=== PATIENT | female | born 1950 | race Caucasian/White ===

== ENCOUNTER 2020-04-25 21:58 | Inpatient (IN) ==
[2020-04-25] MEDS ORDERED: SODIUM CHLORIDE 0.9% 500 ML IV SCH (22:15)
[2020-04-25] MEDS ORDERED: PANTOprazole 40 MG in SYRINGE 0 ML IV ONE (22:25)
--- NOTE | 2020-04-25 22:38 | Emergency Department Note ---
History of Present Illness General Chief complaint: Weakness Stated complaint: DIZZINESS, WEAKNESS, ABNORMAL LAB History of Present Illness This 70-year-old presents to the ER complaining of weakness and abdominal pain who is anemic coming from the detention Location: Generalized Quality: Weak Severity: Moderate Duration: Past few days Timing: Started a few days ago Context: [facility] sent her in for blood transfusion Modifying factors: better with rest; worse with activity Patient had a blood transfusion last year without difficulties. She is unsure why she is anemic. Patient denies chest pain, dyspnea, fevers, flulike illness, black or blood in her stool, cold symptoms. No known active cancer. Home Medications Home Medications Medication Instructions Recorded Confirmed Type acetaminophen [Tylenol] 650 mg PO Q6H PRN 04/25/20 04/25/20 History acetaminophen [Tylenol] 650 mg PO Q6H PRN 04/25/20 04/25/20 History alogliptin 25 mg PO DAILY 04/25/20 04/25/20 History aspirin 81 mg PO DAILY 04/25/20 04/25/20 History bisacodyl [Dulcolax (bisacodyl)] 10 mg NV DIRECTED PRN 04/25/20 04/25/20 History bupropion HCl 150 mg PO BID 04/25/20 04/25/20 History carvedilol [Coreg] 12.5 mg PO BID 04/25/20 04/25/20 History cholecalciferol (vitamin D3) 50 mcg PO TID 04/25/20 04/25/20 History cranberry 400 mg PO DAILY 04/25/20 04/25/20 History cyclobenzaprine 10 mg PO Q8H PRN 04/25/20 04/25/20 History docusate sodium [Colace] 100 mg PO BID 04/25/20 04/25/20 History donepezil 10 mg PO DAILY 04/25/20 04/25/20 History duloxetine 20 mg PO DAILY 04/25/20 04/25/20 History escitalopram oxalate 10 mg PO DAILY 04/25/20 04/25/20 History ferrous sulfate 324 mg PO BID 04/25/20 04/25/20 History gabapentin 600 mg PO TID 04/25/20 04/25/20 History guaifenesin [Mucinex] 600 mg PO BID 04/25/20 04/25/20 History insulin glargine [Lantus Solostar 20 unit SUBCUT QA 04/25/20 04/25/20 History U-100 Insulin] insulin glargine [Lantus Solostar 30 unit SUBCUT HS 04/25/20 04/25/20 History U-100 Insulin] lactulose 15 ml PO Q6H PRN 04/25/20 04/25/20 History levalbuterol HCl [Xopenex] 0.63 mg INHALATION Q6H PRN 04/25/20 04/25/20 History levothyroxine 75 mcg PO DAILY 04/25/20 04/25/20 History lisinopril 5 mg PO DAILY 04/25/20 04/25/20 History magnesium hydroxide [Milk of 30 ml PO DIRECTED PRN 04/25/20 04/25/20 History Magnesia] memantine 10 mg PO BID 04/25/20 04/25/20 History montelukast [Singulair] 10 mg PO HS 04/25/20 04/25/20 History nystatin 1 applic TOPICAL Q8H PRN 04/25/20 04/25/20 History oxycodone-acetaminophen [Percocet] 1 tab PO Q4H PRN 04/25/20 04/25/20 History oxycodone-acetaminophen [Percocet] 1 tab PO Q4H PRN 04/25/20 04/25/20 History pantoprazole 40 mg PO DAILY 04/25/20 04/25/20 History sodium phosphates [Fleet Enema] 118 ml NV DIRECTED PRN 04/25/20 04/25/20 History spironolactone 12.5 mg PO BID 04/25/20 04/25/20 History sucralfate 1 g PO HS 04/25/20 04/25/20 History Allergies Allergy/AdvReac Type Severity Reaction Status Date / Time hydromorphone Allergy Mild hives Unverified 07/25/12 11:16 indomethacin Allergy Mild NOSE BLEED Unverified 07/25/12 11:16 CONTRAST DYE Allergy Intermediate DIFFICULTY Uncoded 07/25/12 11:16 BREATHING Past Med/Surg History Medical History CHF (congestive heart failure) COPD (chronic obstructive pulmonary disease) Diabetes High blood pressure Surgical History History of cholecystectomy Social History Preferred Language: Irish Current Living Situation: Skilled Nursing Feels Safe at Home: Yes Smoking Status: Former smoker Review of Systems A total of 10 systems reviewed and were otherwise negative Physical Exam Vital Signs Vital Signs - 24 hr 04/25/20 22:04 04/25/20 22:08 04/25/20 22:32 Temperature Temperature Source Pulse Rate 66 67 73 Pulse Rate from SpO2 Sensor 66 67 Respiratory Rate 10 L 7 L 26 H Blood Pressure 107/49 L Blood Pressure [Left Arm] Blood Pressure Mean 63 Blood Pressure Mean [Left Arm] Pulse Oximetry 100 100 Oxygen Delivery Method Oxygen Flow Rate Sepsis Recent Fever Within 48 Hours Sepsis New/Unexplained Change in Mental Status Sepsis Action Taken by Nursing 04/25/20 22:36 04/25/20 23:00 04/25/20 23:30 Temperature 36.8 C Temperature Source Oral Pulse Rate 65 84 73 Pulse Rate from SpO2 Sensor Respiratory Rate 16 18 17 Blood Pressure 107/49 L Blood Pressure [Left Arm] 107/49 L Blood Pressure Mean 68 Blood Pressure Mean [Left Arm] 68 Pulse Oximetry 100 Oxygen Delivery Method Nasal Cannula Oxygen Flow Rate 2 Sepsis Recent Fever Within 48 Hours No Sepsis New/Unexplained Change in Mental Status No Sepsis Action Taken by Nursing No Action Required 04/26/20 00:00 Temperature Temperature Source Pulse Rate 68 Pulse Rate from SpO2 Sensor Respiratory Rate 16 Blood Pressure Blood Pressure [Left Arm] Blood Pressure Mean Blood Pressure Mean [Left Arm] Pulse Oximetry Oxygen Delivery Method Oxygen Flow Rate Sepsis Recent Fever Within 48 Hours Sepsis New/Unexplained Change in Mental Status Sepsis Action Taken by Nursing VITALS: Vitals are noted on the nurse's note and reviewed by myself. Vital sign s stable. GENERAL: Pleasant female fatigued appearing, in no acute distress, nondiaphoretic SKIN: The skin was without rashes, erythema, edema, or bruising. There is no tenting of the skin. Capillary reflex less than 2 seconds. HEAD: Normocephalic atraumatic. EARS: External auditory canals clear EYES: Pupils equal round and reactive to light and accommodation. Conjunctivae without injection, sclerae without icterus. Extraocular movements intact. NOSE: Patent, turbinates without inflammation or discharge. MOUTH: Mucous membranes moist. Pharynx without erythema or exudate. Uvula m idline. Airway patent. Tongue does not deviate. NECK: Supple without nuchal rigidity. No lymphadenopathy. No thyromegaly. Cervical spine is nontender. No JVD. HEART: Regular rate and rhythm LUNGS: Clear to auscultation bilaterally without wheezes, rales or rhonchi. No retractions or accessory muscle use. ABDOMEN: Positive bowel sounds x 4. Normal tympanic percussion. Soft, protuberant, obese, tender to palpation lower abdomen, without masses or organomegaly. No guarding or rebound tenderness. 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 NEURO: Patient was alert and oriented to person place and time. Normal sensation to light and sharp touch. No focal neurological deficits. Course Administered Medications Sodium Chloride (Nss) 250 mls @ 15 mls/hr IV .[id number] PRN PRN Reason: For Transfusion Stop: 04/26/20 09:35 Last Admin: 04/26/20 00:40 Dose: 15 mls/hr Documented by: [id number] Discontinued Medications Pantoprazole Sodium 40 mg/ (Syringe) 10 mls @ 5 mls/min IV NOW ONE Stop: 04/25/20 22:26 Last Admin: 04/26/20 00:39 Dose: 5 mls/min Documented by: [id number] Critical Care Time Critical Care Time: Yes Total Critical Care Time: 35 I have personally spent 35 minutes of critical care time in the direct management of this patient. This includes bedside care, interpretation of diagnostic studies, and testing, discussion with consultants, patient, and family members, and other required patient management activities. This 35 minutes is in excess of all separately billable procedures. Medical Decision Making Medical Records Attestation: I reviewed the patient's medical records. Home Medications Current Medication List: was personally reviewed by me Laboratory Data Attestation: I reviewed the patient's lab results. Result diagrams: 04/25/20 22:20 04/25/20 22:20 Lab Results 04/25/20 04/25/20 04/25/20 Range/Units 22:20 22:20 22:43 WBC 6.23 (4.8-10.8) K/uL RBC 3.47 L (4.2-5.4) M/uL Hgb 7.6 L (12.0-16.0) g/dL Hct 27.9 L (37-47) % MCV 80.4 (80-100) fL MCH 21.9 L (25-34) pg MCHC 27.2 L (32-36) g/dL RDW Std Deviation 47.5 H (36.4-46.3) fL RDW Coeff of Carlos 16.2 H (11.5-14.5) % Plt Count 99 L (130-400) K/uL Immature Gran % (Auto) 0.3 % Neut % (Auto) 72.0 % Lymph % (Auto) 18.5 % Karnes % (Auto) 7.1 % Eos % (Auto) 1.8 % Baso % (Auto) 0.3 % Neut # (Auto) 4.49 (1.4-6.5) K/uL Lymph # (Auto) 1.15 L (1.2-3.4) K/uL Karnes # (Auto) 0.44 (0.11-0.59) K/uL Eos # (Auto) 0.11 (0-0.5) K/uL Baso # (Auto) 0.02 (0-0.2) K/uL Immature Gran # (Auto) 0.02 (0.00-0.02) K/uL Platelet Estimate Decreased L (Normal) Hypochromasia Present Sodium 139 (136-145) mmol/L Potassium 4.0 (3.5-5.1) mmol/L Chloride 105 (98-107) mmol/L Carbon Dioxide 30 (21-32) mmol/L Anion Gap 4.0 (3-11) BUN 26 H (7-18) mg/dl Creatinine 1.64 H (0.6-1.2) mg/dl Est Cr Clr Drug Dosing Not Reportable Est GFR ( Amer) 36.9 Est GFR (Non-Af Amer) 31.8 BUN/Creatinine Ratio 15.5 (10-20) Glucose 90 (70-99) mg/dl Calcium 9.1 (8.5-10.1) mg/dl Magnesium 1.9 (1.8-2.4) mg/dl Total Bilirubin 0.2 (0.2-1) mg/dl AST 9 L (15-37) U/L ALT 14 (12-78) U/L Alkaline Phosphatase 83 (45-117) U/L Total Creatine Kinase 40 (26-192) U/L Troponin I < 0.015 (0-0.045) ng/ml Total Protein 7.1 (6.4-8.2) gm/dl Albumin 3.0 L (3.4-5.0) gm/dl Globulin 4.1 H (2.5-4.0) gm/dl Albumin/Globulin Ratio 0.7 L (0.9-2) TSH 47.700 H (0.300-4.500) uIu/ml Free T4 0.75 L (0.8-1.6) ng/dl Blood Type O Positive Antibody Screen NEGATIVE Crossmatch See Detail Imaging Data Attestation: I personally reviewed and interpreted this imaging study as follows: Blood Pressure Blood Pressure Findings: Normal blood pressure MDM Narrative Prior records/ancillary studies reviewed and summarized above. Nursing notes reviewed. Additional history obtained from EMS. The patient's history was concerning for fatigue, anemia, abdominal pain. Differential diagnosis: Etiologies such as metabolic, infection, hypo/hyperglycemia, electrolyte abnormalities, cardiac sources, intracerebral event, toxicologic, neurologic, as well as others were entertained. Physical examination: As above. ER treatment provided: IV Lock An order was placed for continuous cardiac monitoring. The monitor shows a rate of 60-100 with a normal sinus rhythm. protonix On reassessment the patient felt better. Diagnostics interpretation by me: ECG: Ordered for weakness EKG: Normal sinus, low voltage, no acute ST-T wave changes, left axis deviation. Rate of 67. Impression normal sinus rhythm with a left axis deviation interpreted by myself I think arrhythmia is unlikely. EKG shows normal sinus rhythm with no interval abnormalities such as QT prolongation or WPW. There are no findings to suggest Brugada syndrome. Cardiac monitoring in the emergency department reveals no tachycardic or bradycardic dysrhythmia. Hypertrophic cardiomyopathy was considered but there are no clear historical elements pointing toward this. EKG is not suggestive. The QRS voltage is not extremely large and there are no suggestive Q waves. The labs revealed severe anemia, elevated TSH, low T4, elevated creatinine Blood transfusion paperwork was filled out and signed, reviewed and consented with the patient. Imaging studies: CT ABDOMEN & PELVIS Without Contrast: Mild thickening in the sigmoid colon suggesting some form of colitis. No evidence of pneumatosis or extra luminal air. Nonobstructive bowel gas pattern. Nodular hepatic contour may suggest cirrhosis. Splenomegaly. No radiograph evidence of pancreatitis. Gallbladder not visualized. Hysterectomy. Edema and scarring in the abdominal wall. Left renal stone. Nodularity in the right middle lobe Cardiomegaly Degenerative changes in the spine with associated central canal and foraminal stenoses. Radiologist: Dora Hedrick M.D. Chest x-ray with no acute consolidation, pneumothorax or free air per my interpretation. Cardiomegaly present Consultation: A consultation was placed with the hospitalist. The case was discussed and diagnostics were reviewed. The patient was evaluated in the ER for further treatment. Exam and history seem consistent with symptomatic anemia who is guaiac positive. Patient was given Protonix. She was typed and screened and ordered for 2 units. Medicine was consulted. She will be admitted. Patient is a full code. By the evaluation outlined above emergent etiologies such as infection, electrolyte abnormalities, cardiac sources, intracerebral event, toxologic, neurologic, abnormalities blood glucose, metabolic, as well as others were deemed relatively unlikely. The pt informed about the findings as listed above. All questions were answered and pleased with the treatment. The chart was completed utilizing [employer] Speech voice recognition software. Grammatical errors, random word insertions, pronoun errors, and incomplete sentences are an occassional consequence of this system due to software limitations, ambient noise, and hardware issues. Any formal questions or concerns about the content, text, or information contained within the body of this dictation should be directly addressed to the physician service assistant for clarification. Impression & Plan Anemia, Hypothyroidism, Colitis Discharge Plan Visit Data Chief Complaint: Weakness Stated Complaint: DIZZINESS, WEAKNESS, ABNORMAL LAB ED Provider: Catalino Adams ED Midlevel Provider: Erica Moreno Discharge Problem: Anemia, Hypothyroidism, Colitis Patient Disposition: Being Evaluated by Hospitalist Condition: Fair Forms Stand Alone Forms: My [facility] Prescriptions Prescriptions: No Action carvedilol [Coreg] 12.5 mg Tablet 12.5 mg PO BID RF: 0 alogliptin 25 mg Tablet 25 mg PO DAILY RF: 0 aspirin 81 mg Tablet,Delayed Release (Dr/Ec) 81 mg PO DAILY RF: 0 sucralfate 1 gram Tablet 1 g PO HS RF: 0 cranberry 400 mg Capsule 400 mg PO DAILY RF: 0 donepezil 10 mg Tablet 10 mg PO DAILY RF: 0 duloxetine 20 mg Capsule,Delayed Release(Dr/Ec) 20 mg PO DAILY RF: 0 escitalopram oxalate 10 mg Tablet 10 mg PO DAILY RF: 0 Lantus Solostar U-100 Insulin 100 unit/mL (3 mL) Insulin Pen 20 unit SUBCUT QAM RF: 0 Lantus Solostar U-100 Insulin 100 unit/mL (3 mL) Insulin Pen 30 unit SUBCUT HS RF: 0 levothyroxine 75 mcg Tablet 75 mcg PO DAILY RF: 0 lisinopril 5 mg Tablet 5 mg PO DAILY RF: 0 montelukast [Singulair] 10 mg Tablet 10 mg PO HS RF: 0 pantoprazole 40 mg Tablet,Delayed Release (Dr/Ec) 40 mg PO DAILY RF: 0 bupropion HCl 150 mg Tablet Extended Release 24 Hr 150 mg PO BID RF: 0 ferrous sulfate 324 mg (65 mg iron) Tablet,Delayed Release (Dr/Ec) 324 mg PO BID RF: 0 memantine 10 mg Tablet 10 mg PO BID RF: 0 guaifenesin [Mucinex] 600 mg Tablet Extended Release 12hr 600 mg PO BID RF: 0 spironolactone 25 mg Tablet 12.5 mg PO BID RF: 0 gabapentin 600 mg Tablet 600 mg PO TID RF: 0 cholecalciferol (vitamin D3) 50 mcg (2,000 unit) Tablet 50 mcg PO TID RF: 0 acetaminophen [Tylenol] 325 mg Tablet 650 mg PO Q6H PRN (Reason: Mild Pain (Scale Score 1-4)) RF: 0 docusate sodium [Colace] 100 mg Capsule 100 mg PO BID RF: 0 cyclobenzaprine 10 mg Tablet 10 mg PO Q8H PRN (Reason: Spasms) RF: 0 bisacodyl [Dulcolax (bisacodyl)] 10 mg Suppository 10 mg NV DIRECTED PRN (Reason: Constipation) RF: 0 Fleet Enema 19-7 gram/118 mL Enema 118 ml NV DIRECTED PRN (Reason: Constipation) RF: 0 lactulose 10 gram/15 mL (15 mL) Solution 15 ml PO Q6H PRN (Reason: Constipation) RF: 0 magnesium hydroxide [Milk of Magnesia] 400 mg/5 mL Suspension 30 ml PO DIRECTED PRN (Reason: Constipation) RF: 0 nystatin 100,000 unit/gram Powder 1 applic TOPICAL Q8H PRN (Reason: excoriation) RF: 0 oxycodone-acetaminophen [Percocet] 5-325 mg Tablet 1 tab PO Q4H PRN (Reason: pain 4-6) RF: 0 oxycodone-acetaminophen [Percocet] 5-325 mg Tablet 1 tab PO Q4H PRN (Reason: pain 7-10) RF: 0 acetaminophen [Tylenol] 325 mg Tablet 650 mg PO Q6H PRN (Reason: Fever) RF: 0 levalbuterol HCl [Xopenex] 0.63 mg/3 mL Solution For Nebulization 0.63 mg INHALATION Q6H PRN (Reason: sob/wheezing) RF: 0 Referrals Referrals: Nathaly Salgado [Primary Care Provider] - Discharge Problem: Anemia Qualifiers: Anemia type: unspecified type Qualified Code(s): D64.9 - Anemia, unspecified
[2020-04-25 22:46] LABS: Alanine Aminotransferase 14 U/L (12-78); Aspartate Aminotransferase 9 U/L (15-37); BUN Creatinine Ratio 15.5 (10-20); Blood Urea Nitrogen 26 mg/dl (7-18); Calcium 9.1 mg/dl (8.5-10.1); Carbon Dioxide 30 mmol/L (21-32); Chloride 105 mmol/L (98-107); Est GFR (African American) 36.9; Est GFR (Non-African American) 31.8; Glucose 90 mg/dl (70-99); Magnesium 1.9 mg/dl (1.8-2.4); Sodium 139 mmol/L (136-145)
[2020-04-25 22:57] LABS: Albumin Globulin Ratio 0.7 (0.9-2); Alkaline Phosphatase 83 U/L (45-117); Bilirubin,Total 0.2 mg/dl (0.2-1); Creatine Kinase 40 U/L (26-192); Globulin 4.1 gm/dl (2.5-4.0); Total Protein 7.1 gm/dl (6.4-8.2); Troponin I < 0.015 ng/ml (0-0.045)
[2020-04-25 23:03] LABS: Hematocrit (blood only) 27.9 % (37-47); Hemoglobin 7.6 g/dL (12.0-16.0); Mean Corpuscular Hemoglobin 21.9 pg (25-34); Mean Corpuscular Hgb Conc 27.2 g/dL (32-36); Mean Corpuscular Volume 80.4 fL (80-100); Platelet Count 99 K/uL (130-400); RDW Coefficient of Variation 16.2 % (11.5-14.5); RDW Standard Deviation 47.5 fL (36.4-46.3); Red Blood Count 3.47 M/uL (4.2-5.4); White Blood Count 6.23 K/uL (4.8-10.8)
[2020-04-25 23:04] LABS: Basophils # (auto) 0.02 K/uL (0-0.2); Basophils % (auto) 0.3 %; Eosinophils # (auto) 0.11 K/uL (0-0.5); Eosinophils % (auto) 1.8 %; Hypochromasia Present; Immature Granulocytes # (auto) 0.02 K/uL (0.00-0.02); Immature Granulocytes % (auto) 0.3 %; Lymphocytes # (auto) 1.15 K/uL (1.2-3.4); Lymphocytes % (auto) 18.5 %; Monocytes # (auto) 0.44 K/uL (0.11-0.59); Monocytes % (auto) 7.1 %; Neutrophils # (auto) 4.49 K/uL (1.4-6.5); Platelet Estimate Decreased (Normal)
[2020-04-25 23:09] LABS: T4 Free Thyroxine 0.75 ng/dl (0.8-1.6)
[2020-04-25] MEDS ORDERED: SODIUM CHLORIDE 0.9% 250 ML IV PRN (23:34)
--- NOTE | 2020-04-26 01:07 | History & Physical Report ---
Date of Service April 26, 2020 Assessment & Plan (1) Anemia: Hemoglobin on 04/23 was 7.1. Hemoglobin on 04/24 was 6.8. Hemoglobin upon admission today is 7.6. She reportedly has had transfusions in the past. She was typed and screened and written for 1 unit PRBCs by the ED. We will contact the referring [facility] to see if there are additional records regarding history of anemia. A presumptive at least contributing source would be colitis of sigmoid colon. Famotidine 20 mg IV every 12 hours Zofran 4 mg IV every 6 hours PRN NSS at 80 mils per hour Consult gastroenterology. Present on Admission?: Yes (2) Colitis: Colitis of sigmoid colon noted on CT. Place on Cipro 400 mg IV every 12 hours and Flagyl 500 mg IV every 8 hours. NSS at 80 mils per hour N.p.o. except medications for now Present on Admission?: Yes (3) Cirrhosis of liver: Liver test normal, follow serially. We will try to confirm in the daytime, what type of work-up the patient has had to this point Present on Admission?: Yes (4) Chronic kidney disease (CKD): Creatinine 1.64 upon admission. Range 1.68-2.14. 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 twice daily, until anemia assessment is completed Present on Admission?: Yes (8) Hypothyroidism: Reportedly on levothyroxine 75 mcg daily. TSH is 47.7 It will need to be verified if patient is actually taking medications as directed, if so, then dosing will need to be increased Present on Admission?: Yes (9) Splenomegaly: Noted Present on Admission?: Yes History of Present Illness Chief Complaint: The patient is referred to the emergency department by [facility] reporting that she needs a blood transfusion. Primary Care Provider: Nathaly Salgado The patient is a 70-year-old female with a past medical history including anemia, hypothyroidism, diabetes mellitus, anxiety with depression, muscle spasm, SDAT, peripheral neuropathy, COPD, chronic pain syndrome and GERD. She was sent to the ED by [facility] reporting that she needed a transfusion. Patient herself is unable to give a significant history, appearing somewhat lethargic and able to give one-word answers. She reportedly has been anemic in the past, and did have a blood transfusion last year without difficulties. Patient reportedly earlier denied chest pain, shortness of breath, fevers, chills. She is unable to tell me if she has had blood in her stool or any change in stool pattern. Her HPI and review of systems as noted are very limited. Allergies Allergy/AdvReac Type Severity Reaction Status Date / Time hydromorphone Allergy Mild hives Unverified 07/25/12 11:16 indomethacin Allergy Mild NOSE BLEED Unverified 07/25/12 11:16 CONTRAST DYE Allergy Intermediate DIFFICULTY Uncoded 07/25/12 11:16 BREATHING Home Medications Home Medications Medication Instructions Recorded Confirmed Type acetaminophen [Tylenol] 650 mg PO Q6H PRN 04/25/20 04/25/20 History acetaminophen [Tylenol] 650 mg PO Q6H PRN 04/25/20 04/25/20 History alogliptin 25 mg PO DAILY 04/25/20 04/25/20 History aspirin 81 mg PO DAILY 04/25/20 04/25/20 History bisacodyl [Dulcolax (bisacodyl)] 10 mg SC DIRECTED PRN 04/25/20 04/25/20 History bupropion HCl 150 mg PO BID 04/25/20 04/25/20 History carvedilol [Coreg] 12.5 mg PO BID 04/25/20 04/25/20 History cholecalciferol (vitamin D3) 50 mcg PO TID 04/25/20 04/25/20 History cranberry 400 mg PO DAILY 04/25/20 04/25/20 History cyclobenzaprine 10 mg PO Q8H PRN 04/25/20 04/25/20 History docusate sodium [Colace] 100 mg PO BID 04/25/20 04/25/20 History donepezil 10 mg PO DAILY 04/25/20 04/25/20 History duloxetine 20 mg PO DAILY 04/25/20 04/25/20 History escitalopram oxalate 10 mg PO DAILY 04/25/20 04/25/20 History ferrous sulfate 324 mg PO BID 04/25/20 04/25/20 History gabapentin 600 mg PO TID 04/25/20 04/25/20 History guaifenesin [Mucinex] 600 mg PO BID 04/25/20 04/25/20 History insulin glargine [Lantus Solostar 20 unit SUBCUT QAM 04/25/20 04/25/20 History U-100 Insulin] insulin glargine [Lantus Solostar 30 unit SUBCUT HS 04/25/20 04/25/20 History U-100 Insulin] lactulose 15 ml PO Q6H PRN 04/25/20 04/25/20 History levalbuterol HCl [Xopenex] 0.63 mg INHALATION Q6H PRN 04/25/20 04/25/20 History levothyroxine 75 mcg PO DAILY 04/25/20 04/25/20 History lisinopril 5 mg PO DAILY 04/25/20 04/25/20 History magnesium hydroxide [Milk of 30 ml PO DIRECTED PRN 04/25/20 04/25/20 History Magnesia] memantine 10 mg PO BID 04/25/20 04/25/20 History montelukast [Singulair] 10 mg PO HS 04/25/20 04/25/20 History nystatin 1 applic TOPICAL Q8H PRN 04/25/20 04/25/20 History oxycodone-acetaminophen [Percocet] 1 tab PO Q4H PRN 04/25/20 04/25/20 History oxycodone-acetaminophen [Percocet] 1 tab PO Q4H PRN 04/25/20 04/25/20 History pantoprazole 40 mg PO DAILY 04/25/20 04/25/20 History sodium phosphates [Fleet Enema] 118 ml SC DIRECTED PRN 04/25/20 04/25/20 History spironolactone 12.5 mg PO BID 04/25/20 04/25/20 History sucralfate 1 g PO HS 04/25/20 04/25/20 History Past Med/Surg History Medical History CHF (congestive heart failure) COPD (chronic obstructive pulmonary disease) Diabetes High blood pressure Surgical History History of cholecystectomy Social History Preferred Language: Amharic Current Living Situation: [facility] Feels Safe at Home: Yes Smoking Status: Former smoker Review of Systems Review of Systems: Unobtainable due to cognitive status Physical Exam Physical Exam: The patient is arousable, unable to cooperate significantly with examination. Well developed and well nourished, normocephalic and atraumatic, lying in bed and in no acute distress. HEENT--PERRL, EOMI, mucous membranes and oropharynx dry. Neck--supple. No JVD. No bruits. Thyroid normal, trachea midline, no adenopathy. Heart--normal S1 and S2. No murmurs, rubs or gallops. Lungs--clear bilaterally, no respiratory distress, no accessory muscle use. Abdomen--normal bowel sounds and soft. Nontender. Nondistended. Morbidly obese Extremities--no cyanosis or clubbing. No edema. Dermatologic--normal skin turgor. Appears mildly pale Neurologic--cranial nerves II through XII grossly intact. Rheumatologic--normal range of motion, with limited exam Psychiatric--flat affect, lethargic Results & Data Results & Data ([facility]) Vital Signs (Past 12 Hours) Vital Signs Temp Pulse Resp BP BP Pulse Ox 04/26/20 01:06 98.2 F 67 18 107/49 L 99 04/26/20 00:00 68 16 04/25/20 23:30 73 17 04/25/20 23:00 84 18 04/25/20 22:36 98.2 F 65 16 107/49 L 107/49 L 100 04/25/20 22:32 73 26 H 04/25/20 22:08 67 7 L 100 04/25/20 22:04 66 10 L 107/49 L 100 Laboratory Results Laboratory Results WBC 6.23 K/uL (4.8-10.8) 04/25/20 22:20 RBC 3.47 M/uL (4.2-5.4) L 04/25/20 22:20 Hgb 7.6 g/dL (12.0-16.0) L 04/25/20:20 Hct 27.9 % (37-47) L 04/25/20:20 MCV 80.4 fL (80-100) 04/25/20:20 MCH 21.9 pg (25-34) L 04/25/20:20 MCHC 27.2 g/dL (32-36) L 04/25/20:20 RDW Std Deviation 47.5 fL (36.4-46.3) H 04/25/20: RDW Coeff of Carlos 16.2 % (11.5-14.5) H 04/25/20:20 Plt Count 99 K/uL (130-400) L 04/25/20: Immature Gran % (Auto) 0.3 % 04/25/20: Neut % (Auto) 72.0 % 04/25/20:20 Lymph % (Auto) 18.5 % 04/25/20 22:20 Callaway % (Auto) 7.1 % 04/25/20: Eos % (Auto) 1.8 % 04/25/20 22:20 Baso % (Auto) 0.3 % 04/25/20:20 Neut # (Auto) 4.49 K/uL (1.4-6.5) 04/25/20: Lymph # (Auto) 1.15 K/uL (1.2-3.4) L 04/25/20:20 Callaway # (Auto) 0.44 K/uL (0.11-0.59) 04/25/20:20 Eos # (Auto) 0.11 K/uL (0-0.5) 04/25/20 22:20 Baso # (Auto) 0.02 K/uL (0-0.2) 04/25/20:20 Immature Gran # (Auto) 0.02 K/uL (0.00-0.02) 04/25/20:20 Platelet Estimate Decreased (Normal) L 04/25/20 22:20 Hypochromasia Present 04/25/20 22:20 Sodium 139 mmol/L (136-145) 04/25/20 22:20 Potassium 4.0 mmol/L (3.5-5.1) 06/25/20 22:20 Chloride 105 mmol/L (98-107) 04/25/20 22:20 Carbon Dioxide 30 mmol/L (21-32) 04/25/20 22:20 Anion Gap 4.0 (3-11) 04/25/20 22:20 BUN 26 mg/dl (7-18) H 04/25/20 22:20 Creatinine 1.64 mg/dl (0.6-1.2) H 04/25/20 22:20 Est Cr Clr Drug Dosing Not Reportable 04/25/20 22:20 Est GFR ( Amer) 36.9 04/25/20 22:20 Est GFR (Non-Af Amer) 31.8 04/25/20 22:20 BUN/Creatinine Ratio 15.5 (10-20) 04/25/20: Glucose 90 mg/dl (70-99) 04/25/20 22: Calcium 9.1 mg/dl (8.5-10.1) 04/25/20: Magnesium 1.9 mg/dl (1.8-2.4) 04/25/20:20 Total Bilirubin 0.2 mg/dl (0.2-1) 04/25/20 22:20 AST 9 U/L (15-37) L 04/25/20:20 ALT 14 U/L (12-78) 04/25/20 22:20 Alkaline Phosphatase 83 U/L (45-117) 04/25/20:20 Total Creatine Kinase 40 U/L (26-192) 04/25/20:20 Troponin I < 0.015 ng/ml (0-0.045) 04/25/20: Total Protein 7.1 gm/dl (6.4-8.2) 04/25/20: Albumin 3.0 gm/dl (3.4-5.0) L 04/25/20: Globulin 4.1 gm/dl (2.5-4.0) H 04/25/20 22:20 Albumin/Globulin Ratio 0.7 (0.9-2) L 04/25/20 22:20 TSH 47.700 uIu/ml (0.300-4.500) H 04/25/20 22:20 Free T4 0.75 ng/dl (0.8-1.6) L 04/25/20 22:20 Blood Type O Positive 04/25/20 22:43 Antibody Screen NEGATIVE 04/25/20 22:43 Crossmatch See Detail 04/25/20 22:43 Diagnostic Findings [facility] Patient: ODESSA OQUENDO (Female) : 54 Status: ER Date: 04/25/20 22:32 Room #: History: LOWER ABDOMINAL PAINS, QUESTIONABLE GI BLEED BEST OBTAINABLE DUE TO PATIENT HABITUS Slices: [id number] Priors: Tech: Sadie Kebede @ [phone] Exams: CT ABDOMEN & PELVIS Without Contrast Accession Numbers: [id number] Preliminary Findings Only See Final Report For Complete Findings CT ABDOMEN & PELVIS Without Contrast: Mild thickening in the sigmoid colon suggesting some form of colitis. No evidence of pneumatosis or extra luminal air. Nonobstructive bowel gas pattern. Nodular hepatic contour may suggest cirrhosis. Splenomegaly. No radiograph evidence of pancreatitis. Gallbladder not visualized. Hysterectomy. Edema and scarring in the abdominal wall. Left renal stone. Nodularity in the right middle lobe Cardiomegaly Degenerative changes in the spine with associated central canal and foraminal stenoses. Radiologist: Dora Hedrick M.D. Study ready at 22:35 and initial results transmitted at 22:47 *This report constitutes a preliminary interpretation only. Non-acute findings felt to be unrelated to the clinical presentation may not be discussed in this report. The study will be interpreted and a final report will be generated by the local Radiologist the following shift. To reach the hospital radiology department call [phone]. If a discrepancy is found between the preliminary and final interpretations of this study, please notify us via our Client Portal at [email or web address] QA Exams.You can also fax this report with a description of the discrepancy, or include the final report, to our daytime fax number [phone].If faxing, please indicate the severity of discrepancy using one of the following categories: [ ] 1 - Agree/Informational [ ] 2 - Unlikely to Affect Management [ ] 3 - Possible Eventual Change of Management [ ] 4 - Probable Immediate Change of Management For all other patient related information, please fax us at [phone]. [id number] Code Status & VTE Plan Code Status Full code VTE Prophylaxis Plan VTE Prophylaxis will be ordered: Yes PG Care Time/CCT Total # of Minutes Spent Total Time Spent with Patient: Total time spent is greater than 50% in coordination of care (as documented) at patient's floor/unit and/or counseling patient: Coding Level of Care Code 18837 Initial Inpt Care Lvl 3 Diagnoses Anemia D64.9 Anemia type: unspecified type Colitis K52.9 Cirrhosis of liver K74.60 Chronic kidney disease (CKD) N18.9 SDAT (senile dementia of Alzheimer's type) G30.1; F02.80 Anxiety with depression F41.8 Peripheral neuropathy G62.9 Hypothyroidism E03.9 Splenomegaly R16.1 (1) Anemia Anemia type: unspecified type Qualified Code(s): D64.9 - Anemia, unspecified
[2020-04-26] MEDS ORDERED: GLUCOSE 10 TABS/TUBE PO PRN (02:52)
[2020-04-26] MEDS ORDERED: GLUCOSE 40% GEL 15 GM TUBE PO PRN (02:52)
[2020-04-26] MEDS ORDERED: GLUCAGON FOR INJ 1 MG VIAL SQ PRN (02:52)
[2020-04-26] MEDS ORDERED: DEXTROSE 50% 50 ML SYRINGE IV PRN (02:52)
[2020-04-26] MEDS ORDERED: CARBOHYDRATES FOR HYPOGLYCEMIA PO PRN (02:52)
[2020-04-26] MEDS ORDERED: ONDANSETRON INJ 2 MG/ML 2 ML VIAL IV PRN ×2 (02:52→04:08)
[2020-04-26] MEDS: CIPROFLOXACIN / D5W 400 MG/200 ML BAG IV SCH ×2 (04:46→16:36)
[2020-04-26] MEDS: SODIUM CHLORIDE 0.9% 1000ML 1,000 ML IV SCH ×2 (04:46→16:20)
[2020-04-26] MEDS: metroNIDAZOLE 500 MG/100 ML BAG IV SCH ×3 (05:57→19:07)
--- NOTE | 2020-04-26 07:04 | XRay Report ---
XR chest 1V portable CLINICAL HISTORY: weakness COMPARISON STUDY: 07/25/2012 FINDINGS: There is mild elevation the right hemidiaphragm. There are low lung volumes. The heart is b orderline enlarged. There is no failure. No focal pulmonary consolidation. There are no pleural effus ions. Slight interstitial prominence is felt to be secondary technical factors given the patient's la rge body habitus.[ IMPRESSION: No active disease in the chest. ACT 112: Negative or not required by law. Electronically signed by: Alfredito Gutierrez M.D. 04/26/2020 7:02 AM
[2020-04-26] MEDS: FAMOTIDINE 20 MG in SYRINGE 3 ML IV SCH ×2 (08:49→21:31)
--- NOTE | 2020-04-26 09:02 | CT Scan Report ---
CT SCAN OF THE ABDOMEN AND PELVIS WITHOUT IV CONTRAST CLINICAL HISTORY: Lower abdominal pain. GI bleeding. COMPARISON STUDY: No priors. TECHNIQUE: CT scan of the abdomen and pelvis is performed from the lung bases to the proximal femora. Images are reviewed in the axial, sagittal, and coronal planes. IV contrast was not administered for this examination. Note that the examination was performed in suboptimal fashion without IV contrast. A dose lowering technique was utilized adhering to the principles of ALARA. CT DOSE: 1942.20 mGy.cm FINDINGS: Lung bases: The heart is normal in size and without pericardial effusion. The mitral annulus is dense ly calcified. There are scattered coronary artery calcifications. There is lipomatous hypertrophy of the interatrial septum. A small hiatal hernia is noted. There is an 11 mm pulmonary nodule in the rig ht middle lobe seen on image #18. Chronic interstitial changes are seen at the lung bases. No airspac e consolidation or pleural effusion is identified. Liver: The unenhanced liver is cirrhotic in morphology and heterogeneous in attenuation. There is hyp ertrophy of the left lobe and caudate, as well as nodularity of the surface contour. There is no intr ahepatic biliary ductal dilatation. Gallbladder: Not identified and presumed surgically absent. Spleen: The spleen is enlarged, measuring 18.3 cm in length. Pancreas: The unenhanced pancreas is moderately atrophic and grossly unremarkable. Adrenal glands: Unremarkable. Kidneys: The unenhanced kidneys demonstrate cortical atrophy and are without hydronephrosis. There ar e at least 4 nonobstructing left renal calculi which measure up to 4 mm. There are at least 3 punctat e nonobstructing right renal calculi. There is no evidence of contour deforming renal mass lesion. Abdominal vasculature: The abdominal aorta is normal in course and caliber noting moderate to advance d atherosclerotic calcification. Bowel: There is wall thickening identified involving the rectosigmoid colon with surrounding infiltra tion. The appearance suggests a nonspecific proctocolitis. The remainder of the colon is normal in ap pearance. There is no bowel obstruction. The appendix is well-visualized and normal. Peritoneum: There is no intraperitoneal free air or abdominal ascites. There is laxity of the ventral abdominal wall with left-sided protrusion of abdominal contents. Lymphadenopathy: None. Pelvic viscera: The bladder is grossly unremarkable. The uterus is surgically absent. No adnexal lesi on is seen. Skeletal structures: The skeletal structures are osteopenic. Moderate lumbosacral spondylosis is obse rved. No lytic or blastic lesions are seen. IMPRESSION: 1. Findings are consistent with a nonspecific proctocolitis. Clinical correlation will be required. 2. There is an 11 mm pulmonary nodule in the right middle lobe. This is pathologically indeterminant, and follow-up with a dedicated chest CT in 1-2 months time is recommended for reassessment. 3. Cirrhotic liver morphology. 4. Splenomegaly. 5. Bilateral nephrolithiasis. 6. Additional findings as above. ACT 112: Negative or not required by law. Electronically signed by: Scooter Handy M.D. 04/26/2020 9:00 AM
[2020-04-26] MEDS: INSULIN ASPART 100 UNITS/ML 3 ML PEN SC SCH ×4 (09:13→21:34)
[2020-04-26] MEDS ORDERED: NURSING DECISION MEDICATION ONE (09:45)
[2020-04-26] MEDS ORDERED: MICONAZOLE NITRATE POWDER 43 GM EXT PRN (09:47)
[2020-04-26 10:38] LABS: Estimated Average Glucose 97 mg/dl
[2020-04-26 10:51] LABS: INR 1.1 (0.9-1.1); Prothrombin Time 11.5 Seconds (9.0-12.0)
[2020-04-26 10:52] LABS: BUN Creatinine Ratio 15.9 (10-20); Calcium 8.7 mg/dl (8.5-10.1); Creatinine Clr Calc Pharmacy 42.2 ml/min; Est GFR (African American) 40.4; Est GFR (Non-African American) 34.9; Potassium 3.8 mmol/L (3.5-5.1)
[2020-04-26 10:55] LABS: Albumin Globulin Ratio 0.7 (0.9-2); Bilirubin,Total 0.3 mg/dl (0.2-1); Globulin 4.2 gm/dl (2.5-4.0); Phosphorus 2.6 mg/dl (2.5-4.9); Total Protein 7.2 gm/dl (6.4-8.2)
[2020-04-26 11:18] LABS: Hematocrit (blood only) 30.7 % (37-47); Hemoglobin 8.7 g/dL (12.0-16.0)
[2020-04-26] MEDS: GABAPENTIN 600 MG TAB PO SCH ×2 (14:41→21:32)
--- NOTE | 2020-04-26 15:10 | History & Physical Bridge Note ---
Date of Service April 26, 2020 Patient admitted after midnight Hb up to 8.7 patient is hungry, will let her eat moving bowels, diarrhea, will check C diff and stool cultures called Damian, confirmed she does take her medications, with TSH 47, will increase Synthroid to 100mcg History & Physical Bridge Note I have examined the patient, reviewed the History & Physical and in the interval since the performance of the History & Physical I have noted the following changes of clinical significance: no changes noted
--- NOTE | 2020-04-26 15:31 | Electrocardiogram Report ---
Test Reason : Blood Pressure : / mmHG Vent. Rate : 067 BPM Atrial Rate : 067 BPM P-R Int : 200 ms QRS Dur : 084 ms QT Int : 444 ms P-R-T Axes : 058 -79 051 degrees QTc Int : 469 ms Normal sinus rhythm Left axis deviation Low voltage QRS Septal infarct (cited on or before 25-APR-2020) Possible Lateral infarct (cited on or before 25-APR-2020) Abnormal ECG When compared with ECG of 25-JUL-2012 11:17, Fusion complexes are no longer Present Confirmed by Catalino Mccloud ([id number]) on 04/26/2020 3:31:23 PM Referred By: Nathaly Hearthside Confirmed By:Catalino Mccloud
[2020-04-26 15:59] LABS: Hematocrit (blood only) 29.5 % (37-47); Hemoglobin 8.4 g/dL (12.0-16.0)
[2020-04-26 21:23] LABS: Hematocrit (blood only) 28.9 % (37-47); Hemoglobin 8.1 g/dL (12.0-16.0)
[2020-04-26] MEDS: BuPROPion XL 150 MG TABCR PO SCH (21:32)
[2020-04-26] MEDS: carvediloL 12.5 MG TAB PO SCH (21:32)
[2020-04-26] MEDS: MONTELUKAST SODIUM 10 MG TABLET PO SCH (21:32)
[2020-04-26] MEDS: MEMANTINE HCL 10 MG TAB PO SCH (21:35)
[2020-04-26] MEDS: INSULIN GLARGINE SOLOSTAR 100 UNITS/ML 3 ML PEN SQ SCH (21:35)
[2020-04-27] MEDS: SODIUM CHLORIDE 0.9% 1000ML 1,000 ML IV SCH ×2 (04:29→16:21)
[2020-04-27] MEDS: metroNIDAZOLE 500 MG/100 ML BAG IV SCH ×3 (04:31→20:39)
[2020-04-27] MEDS: CIPROFLOXACIN / D5W 400 MG/200 ML BAG IV SCH ×2 (05:34→16:21)
[2020-04-27] MEDS: LEVOTHYROXINE SODIUM 100 MCG TABLET PO SCH (05:38)
[2020-04-27 06:17] LABS: INR 1.1 (0.9-1.1); Partial Thromboplastin Ratio 1.1; Partial Thromboplastin Time 29.4 Seconds (21.0-31.0); Prothrombin Time 11.6 Seconds (9.0-12.0)
[2020-04-27 06:32] LABS: Basophils # (auto) 0.01 K/uL (0-0.2); Basophils % (auto) 0.2 %; Eosinophils % (auto) 1.7 %; Hematocrit (blood only) 28.4 % (37-47); Hemoglobin 7.9 g/dL (12.0-16.0); Hypochromasia Present; Immature Granulocytes # (auto) 0.01 K/uL (0.00-0.02); Immature Granulocytes % (auto) 0.2 %; Lymphocytes # (auto) 1.05 K/uL (1.2-3.4); Lymphocytes % (auto) 18.3 %; Mean Corpuscular Hgb Conc 27.8 g/dL (32-36); Mean Corpuscular Volume 79.1 fL (80-100); Neutrophils # (auto) 4.18 K/uL (1.4-6.5); Neutrophils % (auto) 72.6 %; Ovalocytes 1+; Platelet Count 86 K/uL (130-400); Platelet Estimate Decreased (Normal); RDW Standard Deviation 45.9 fL (36.4-46.3); Red Blood Count 3.59 M/uL (4.2-5.4); White Blood Count 5.75 K/uL (4.8-10.8)
[2020-04-27 06:47] LABS: Albumin Level 2.8 gm/dl (3.4-5.0); BUN Creatinine Ratio 13.7 (10-20); Calcium 8.6 mg/dl (8.5-10.1); Creatinine Clr Calc Pharmacy 44.3 ml/min; Est GFR (African American) 42.4; Est GFR (Non-African American) 36.6; Magnesium 1.8 mg/dl (1.8-2.4); Potassium 3.7 mmol/L (3.5-5.1)
[2020-04-27 06:49] LABS: Albumin Globulin Ratio 0.7 (0.9-2); Bilirubin,Total 0.2 mg/dl (0.2-1); Globulin 3.8 gm/dl (2.5-4.0); Phosphorus 2.1 mg/dl (2.5-4.9); Total Protein 6.6 gm/dl (6.4-8.2)
[2020-04-27] MEDS: INSULIN ASPART 100 UNITS/ML 3 ML PEN SC SCH ×4 (08:42→20:52)
[2020-04-27] MEDS: DONEPEZIL HCL 10 MG TAB PO SCH (08:43)
[2020-04-27] MEDS: carvediloL 12.5 MG TAB PO SCH ×2 (08:43→20:39)
[2020-04-27] MEDS: MEMANTINE HCL 10 MG TAB PO SCH ×2 (08:44→20:41)
[2020-04-27] MEDS: ASPIRIN 81 MG ECTAB PO SCH (08:44)
[2020-04-27] MEDS: DULOXETINE HCL 20 MG CAP PO SCH (08:44)
[2020-04-27] MEDS: INSULIN GLARGINE SOLOSTAR 100 UNITS/ML 3 ML PEN SQ SCH ×2 (08:44→20:40)
[2020-04-27] MEDS: ESCITALOPRAM OXALATE 10 MG TAB PO SCH (08:44)
[2020-04-27] MEDS: PANTOprazole 40 MG TAB PO SCH (08:45)
[2020-04-27] MEDS: GABAPENTIN 600 MG TAB PO SCH ×3 (08:45→20:41)
[2020-04-27] MEDS: BuPROPion XL 150 MG TABCR PO SCH ×2 (08:45→20:52)
[2020-04-27] MEDS: FAMOTIDINE 20 MG in SYRINGE 3 ML IV SCH ×2 (08:50→20:52)
--- NOTE | 2020-04-27 15:00 | Hospitalist Progress Note ---
Date of Service April 27, 2020 Assessment & Plan (1) Anemia: Hemoglobin on 04/23 was 7.1. Hemoglobin on 04/24 was 6.8. unclear source of anemia, no overt signs of bleeding (no melena or hematochezia since admission) Hb up to 7.9 today continue to monitor daily, transfuse if < 7 microcytic, check iron panel (2) Colitis: Colitis of sigmoid colon noted on CT. Place on Cipro 400 mg IV every 12 hours and Flagyl 500 mg IV every 8 hours. NSS at 80 mils per hour allow her to eat as she is hungry she says she is having diarrhea but RN reports no BM today, she denies abdominal pain WBC normal difficult historian due to dementia (3) Cirrhosis of liver: Liver test normal, follow serially. no signs of decompensation at this time (4) Chronic kidney disease (CKD): Creatinine 1.64 upon admission. down to 1.4 today, making adequate urine via purewick electrolytes stable (5) SDAT (senile dementia of Alzheimer's type): SDAT/anxiety with depression- resume bupropion, donepezil, Lexapro, gabapentin, and memantine (6) Anxiety with depression: See above (7) Peripheral neuropathy: gabapentin 600 mg p.o. twice daily (8) Hypothyroidism: Reportedly on levothyroxine 75 mcg daily. TSH is 47.7 called [facility], confirmed that she takes her medications will increase Synthroid to 100mcg daily, repeat TSH in 6 weeks (9) Splenomegaly: Noted Admission and Anticipated Discharge Date Admission Date: April 26, 2020 Subjective patient sleeping a lot, no diarrhea per RN but the patient says she has diarrhea? the RN says she has not cleaned up the patient at all today she has Purewick catheter, making adequate amounts of urine denies abdominal pain, lunch was delivered but she is not hungry reviewed labs, Hb is stable at 7.9, WBC 5k, plts 86 Cr 1.46 and K is 3.7, Phos 2.1 Review of Systems Review of Systems: All systems reviewed & are unremarkable except as noted in HPI & below Physical Exam Constitutional: WD/WN, vitals as above + overweight Eyes: PERRL, conjunctivae normal, anicteric sclerae ENMT: external ear and nose normal, oropharynx normal Neck: trachea midline, no thyromegaly Respiratory: normal respiratory effort, lungs clear to auscultation Cardiovascular: RRR, no murmur, no edema Gastrointestinal (Abdomen): normal bowel sounds, soft, nontender, no hepatosplenomegaly Musculoskeletal: no cyanosis or clubbing, extremities motor strength 5/5 Skin: no rashes, warm and dry Neurologic: patellar DTR's 2+ bilat, sensation intact and PERRL, EOMI, accommodation nl, no face palsy, no dysarthria Psychiatric: Orientation: alert and oriented to person; + not oriented to place and + not oriented to time Lymphatic: no cervical or axillary lymphadenopathy Results & Data Results & Data ([facility]) Vital Signs (Past 12 Hours) Vital Signs Temp Pulse Pulse Resp BP Pulse Ox 04/27/20 11:10 36.4 C L 50 L 18 103/54 L 93 04/27/20 08:50 70 04/27/20 07:20 36.7 C 75 18 159/71 H 94 04/27/20 03:37 36.8 C 72 16 104/62 97 Laboratory Results Laboratory Results - last 24 hr 04/26/20 04/26/20 04/26/20 15:04 16:47 17:25 WBC RBC Hgb 8.4 L Hct 29.5 L MCV MCH MCHC RDW Std Deviation RDW Coeff of Carlos Plt Count Immature Gran % (Auto) Neut % (Auto) Lymph % (Auto) Edgar % (Auto) Eos % (Auto) Baso % (Auto) Neut # (Auto) Lymph # (Auto) Edgar # (Auto) Eos # (Auto) Baso # (Auto) Immature Gran # (Auto) Platelet Estimate Hypochromasia Ovalocytes PT INR APTT PTT Ratio Sodium Potassium Chloride Carbon Dioxide Anion Gap BUN Creatinine Est Cr Clr Drug Dosing Est GFR ( Amer) Est GFR (Non-Af Amer) BUN/Creatinine Ratio Glucose POC Glucose 123 H Calcium Phosphorus Magnesium Total Bilirubin AST ALT Alkaline Phosphatase Total Protein Albumin Globulin Albumin/Globulin Ratio SARS-CoV-2 RNA (RT-PCR) Pending 04/26/20 04/26/20 04/27/20 20:43 21:02 05:41 WBC 5.75 RBC 3.59 L Hgb 8.1 L 7.9 L Hct 28.9 L 28.4 L MCV 79.1 L MCH 22.0 L MCHC 27.8 L RDW Std Deviation 45.9 RDW Coeff of Carlos 16.0 H Plt Count 86 L Immature Gran % (Auto) 0.2 Neut % (Auto) 72.6 Lymph % (Auto) 18.3 Edgar % (Auto) 7.0 Eos % (Auto) 1.7 Baso % (Auto) 0.2 Neut # (Auto) 4.18 Lymph # (Auto) 1.05 L Edgar # (Auto) 0.40 Eos # (Auto) 0.10 Baso # (Auto) 0.01 Immature Gran # (Auto) 0.01 Platelet Estimate Decreased L Hypochromasia Present Ovalocytes 1+ PT INR APTT PTT Ratio Sodium Potassium Chloride Carbon Dioxide Anion Gap BUN Creatinine Est Cr Clr Drug Dosing Est GFR ( Amer) Est GFR (Non-Af Amer) BUN/Creatinine Ratio Glucose POC Glucose 104 H Calcium Phosphorus Magnesium Total Bilirubin AST ALT Alkaline Phosphatase Total Protein Albumin Globulin Albumin/Globulin Ratio SARS-CoV-2 RNA (RT-PCR) 04/27/20 04/27/20 04/27/20 05:41 05:41 07:47 WBC RBC Hgb Hct MCV MCH MCHC RDW Std Deviation RDW Coeff of Carlos Plt Count Immature Gran % (Auto) Neut % (Auto) Lymph % (Auto) Edgar % (Auto) Eos % (Auto) Baso % (Auto) Neut # (Auto) Lymph # (Auto) Edgar # (Auto) Eos # (Auto) Baso # (Auto) Immature Gran # (Auto) Platelet Estimate Hypochromasia Ovalocytes PT 11.6 INR 1.1 APTT 29.4 PTT Ratio 1.1 Sodium 142 Potassium 3.7 Chloride 110 H Carbon Dioxide 29 Anion Gap 3.0 BUN 20 H Creatinine 1.46 H Est Cr Clr Drug Dosing 44.3 Est GFR ( Amer) 42.4 Est GFR (Non-Af Amer) 36.6 BUN/Creatinine Ratio 13.7 Glucose 103 H POC Glucose 119 H Calcium 8.6 Phosphorus 2.1 L Magnesium 1.8 Total Bilirubin 0.2 AST 8 L ALT 11 L Alkaline Phosphatase 84 Total Protein 6.6 Albumin 2.8 L Globulin 3.8 Albumin/Globulin Ratio 0.7 L SARS-CoV-2 RNA (RT-PCR) 04/27/20 11:53 WBC RBC Hgb Hct MCV MCH MCHC RDW Std Deviation RDW Coeff of Carlos Plt Count Immature Gran % (Auto) Neut % (Auto) Lymph % (Auto) Edgar % (Auto) Eos % (Auto) Baso % (Auto) Neut # (Auto) Lymph # (Auto) Edgar # (Auto) Eos # (Auto) Baso # (Auto) Immature Gran # (Auto) Platelet Estimate Hypochromasia Ovalocytes PT INR APTT PTT Ratio Sodium Potassium Chloride Carbon Dioxide Anion Gap BUN Creatinine Est Cr Clr Drug Dosing Est GFR ( Amer) Est GFR (Non-Af Amer) BUN/Creatinine Ratio Glucose POC Glucose 141 H Calcium Phosphorus Magnesium Total Bilirubin AST ALT Alkaline Phosphatase Total Protein Albumin Globulin Albumin/Globulin Ratio SARS-CoV-2 RNA (RT-PCR) Medications Administered Current Inpatient Medications Aspirin (Ecotrin Ectab) 81 mg PO DAILY [facility] Stop: 05/27/20 08:59 Last Admin: 04/27/20 08:44 Dose: 81 mg Documented by: Bupropion HCl (Wellbutrin-Xl) 150 mg PO BID [facility] Stop: 05/26/20 20:59 Last Admin: 04/27/20 08:45 Dose: 150 mg Documented by: Carvedilol (Coreg) 12.5 mg PO BID [facility] Stop: 05/26/20 20:59 Last Admin: 04/27/20 08:43 Dose: 12.5 mg Documented by: Dextrose (Dextrose 50%) 25 - 50 ml IV UD PRN; Protocol PRN Reason: Hypoglycemia Protocol Stop: 05/26/20 02:51 Donepezil HCl (Aricept) 10 mg PO DAILY [facility] Stop: 05/27/20 08:59 Last Admin: 04/27/20 08:43 Dose: 10 mg Documented by: Duloxetine HCl (Cymbalta) 20 mg PO DAILY [facility] Stop: 05/27/20 08:59 Last Admin: 04/27/20 08:44 Dose: 20 mg Documented by: Escitalopram Oxalate (Lexapro Tab) 10 mg PO DAILY [facility] Stop: 05/27/20 08:59 Last Admin: 04/27/20 08:44 Dose: 10 mg Documented by: Gabapentin (Neurontin) 600 mg PO TID [facility] Stop: 05/26/20 13:59 Last Admin: 04/27/20 14:12 Dose: 600 mg Documented by: Glucagon (Glucagen) 1 mg SQ UD PRN; Protocol PRN Reason: Hypoglycemia Protocol Stop: 05/26/20 02:51 Glucose (Dex4 Glucose) 4 - 8 tabs PO UD PRN; Protocol PRN Reason: Hypoglycemia Protocol Stop: 05/26/20 02:51 Glucose (Glucose 40%) 15 - 30 gm PO UD PRN; Protocol PRN Reason: Hypoglycemia Protocol Stop: 05/26/20 02:51 Ciprofloxacin (Cipro) 400 mg in 200 mls @ 200 mls/hr IV Q12H [facility] Stop: 05/06/20 03:59 Last Infusion: 04/27/20 08:46 Dose: Infused Documented by: Metronidazole (Flagyl) 500 mg in 100 mls @ 100 mls/hr IV Q8H [facility] Stop: 05/06/20 03:59 Last Infusion: 04/27/20 14:13 Dose: Infused Documented by: Sodium Chloride (Nss 1000ml) 1,000 mls @ 80 mls/hr IV .[id number] [facility] Stop: 05/26/20 02:51 Last Admin: 04/27/20 04:29 Dose: 80 mls/hr Documented by: Famotidine 20 mg/ Syringe 5 mls @ 2.5 mls/min IV Q12H [facility] Stop: 05/26/20 08:59 Last Admin: 04/27/20 08:50 Dose: 2.5 mls/min Documented by: Insulin Aspart (Novolog Flexpen) 0 units SC ACHS [facility] Stop: 05/26/20 07:29 Last Admin: 04/27/20 12:30 Dose: Not Given Documented by: Insulin Glargine (Lantus Solostar Pen) 30 units SQ HS [facility] Stop: 05/26/20 20:59 Last Admin: 04/26/20 21:35 Dose: 30 units Documented by: Insulin Glargine (Lantus Solostar Pen) 20 units SQ QAM [facility] Stop: 05/27/20 08:59 Last Admin: 04/27/20 08:44 Dose: 20 units Documented by: Levothyroxine Sodium (Synthroid) 100 mcg PO DAILYBB [facility] Stop: 05/27/20 06:29 Last Admin: 04/27/20 05:38 Dose: 100 mcg Documented by: Memantine (Namenda) 10 mg PO BID [facility] Stop: 05/26/20 20:59 Last Admin: 04/27/20 08:44 Dose: 10 mg Documented by: Miconazole Nitrate (Desenex) 1 appln EXT PRN PRN PRN Reason: AFFECTED SKIN FOLDS Stop: 05/26/20 09:46 Miscellaneous (Carbohydrates For Hypoglycemia) 15 - 30 gm PO UD PRN PRN Reason: Hypoglycemia Protocol Stop: 05/26/20 02:51 Montelukast Sodium (Singulair) 10 mg PO HS [facility] Stop: 05/26/20 20:59 Last Admin: 04/26/20 21:32 Dose: 10 mg Documented by: Ondansetron HCl (Zofran) 4 mg IV Q6H PRN PRN Reason: Nausea Stop: 05/26/20 02:51 Ondansetron HCl (Zofran) 4 mg IV Q6H PRN PRN Reason: NAUSEA/VOMITING Stop: 05/26/20 04:07 Pantoprazole Sodium (Protonix) 40 mg PO DAILY [facility] Stop: 05/27/20 08:59 Last Admin: 04/27/20 08:45 Dose: 40 mg Documented by: PG Care Time/CCT Total # of Minutes Spent Total Time Spent with Patient: Total time spent is greater than 50% in coordination of care (as documented) at patient's floor/unit and/or counseling patient: Coding Level of Care Code 73357 Subseq Hosp Care Lvl 3 Diagnoses Anemia D64.9 Anemia type: unspecified type Colitis K52.9 Cirrhosis of liver K74.60 Chronic kidney disease (CKD) N18.9 SDAT (senile dementia of Alzheimer's type) G30.1; F02.80 Anxiety with depression F41.8 Peripheral neuropathy G62.9 Hypothyroidism E03.9 Splenomegaly R16.1 (1) Anemia Anemia type: unspecified type Qualified Code(s): D64.9 - Anemia, unspecified
[2020-04-27] MEDS: MONTELUKAST SODIUM 10 MG TABLET PO SCH (20:52)
[2020-04-28] MEDS: metroNIDAZOLE 500 MG/100 ML BAG IV SCH ×2 (04:07→12:48)
[2020-04-28] MEDS: SODIUM CHLORIDE 0.9% 1000ML 1,000 ML IV SCH (04:07)
[2020-04-28] MEDS: CIPROFLOXACIN / D5W 400 MG/200 ML BAG IV SCH (05:08)
[2020-04-28 06:06] LABS: INR 1.2 (0.9-1.1); Partial Thromboplastin Ratio 1.1; Partial Thromboplastin Time 30.4 Seconds (21.0-31.0); Prothrombin Time 12.4 Seconds (9.0-12.0)
[2020-04-28] MEDS: LEVOTHYROXINE SODIUM 100 MCG TABLET PO SCH (06:12)
[2020-04-28 06:30] LABS: Hematocrit (blood only) 28.9 % (37-47); Hemoglobin 8.1 g/dL (12.0-16.0); Mean Corpuscular Hemoglobin 22.8 pg (25-34); Mean Corpuscular Volume 81.4 fL (80-100); Platelet Count 90 K/uL (130-400); RDW Standard Deviation 47.1 fL (36.4-46.3); Red Blood Count 3.55 M/uL (4.2-5.4); White Blood Count 6.15 K/uL (4.8-10.8)
[2020-04-28 06:31] LABS: Anisocytosis Present; Basophils # (auto) 0.01 K/uL (0-0.2); Basophils % (auto) 0.2 %; Eosinophils # (auto) 0.09 K/uL (0-0.5); Eosinophils % (auto) 1.5 %; Immature Granulocytes # (auto) 0.01 K/uL (0.00-0.02); Immature Granulocytes % (auto) 0.2 %; Lymphocytes # (auto) 0.95 K/uL (1.2-3.4); Lymphocytes % (auto) 15.4 %; Monocytes # (auto) 0.45 K/uL (0.11-0.59); Monocytes % (auto) 7.3 %; Neutrophils # (auto) 4.64 K/uL (1.4-6.5); Neutrophils % (auto) 75.4 %; Ovalocytes 1+; Platelet Estimate Decreased (Normal); Polychromasia 1+
[2020-04-28 06:33] LABS: Albumin Level 2.6 gm/dl (3.4-5.0); BUN Creatinine Ratio 11.6 (10-20); Calcium 8.4 mg/dl (8.5-10.1); Creatinine Clr Calc Pharmacy 52.8 ml/min; Est GFR (African American) 52.2; Magnesium 1.7 mg/dl (1.8-2.4); Potassium 3.4 mmol/L (3.5-5.1)
[2020-04-28 06:36] LABS: Albumin Globulin Ratio 0.7 (0.9-2); Bilirubin,Total 0.3 mg/dl (0.2-1); Ferritin 12.3 ng/ml (8-388); Globulin 3.8 gm/dl (2.5-4.0); Phosphorus 1.9 mg/dl (2.5-4.9); Total Protein 6.4 gm/dl (6.4-8.2)
[2020-04-28] MEDS ORDERED: POTASSIUM PHOS 3 MMOL/1 ML INFUSION IV STA (07:15)
[2020-04-28] MEDS ORDERED: MAGNESIUM SULFATE / D5W 1 GM/100 ML BAG IV ONE (08:00)
[2020-04-28] MEDS ORDERED: POTASSIUM PHOSPHATE 21 MMOL in SODIUM CHLORIDE 0.9% 500 ML IV ONE (08:00)
[2020-04-28] MEDS: INSULIN ASPART 100 UNITS/ML 3 ML PEN SC SCH ×4 (08:20→20:38)
[2020-04-28] MEDS: DULOXETINE HCL 20 MG CAP PO SCH (08:22)
[2020-04-28] MEDS: DONEPEZIL HCL 10 MG TAB PO SCH (08:22)
[2020-04-28] MEDS: carvediloL 12.5 MG TAB PO SCH ×2 (08:22→20:20)
[2020-04-28] MEDS: INSULIN GLARGINE SOLOSTAR 100 UNITS/ML 3 ML PEN SQ SCH ×2 (08:23→20:40)
[2020-04-28] MEDS: MEMANTINE HCL 10 MG TAB PO SCH ×2 (08:23→20:21)
[2020-04-28] MEDS: ESCITALOPRAM OXALATE 10 MG TAB PO SCH (08:23)
[2020-04-28] MEDS: ASPIRIN 81 MG ECTAB PO SCH (08:23)
[2020-04-28] MEDS: PANTOprazole 40 MG TAB PO SCH (08:24)
[2020-04-28] MEDS: BuPROPion XL 150 MG TABCR PO SCH ×2 (08:24→20:21)
[2020-04-28] MEDS: GABAPENTIN 600 MG TAB PO SCH ×3 (08:24→20:21)
[2020-04-28] MEDS: FAMOTIDINE 20 MG in SYRINGE 3 ML IV SCH ×2 (08:31→20:24)
--- NOTE | 2020-04-28 12:31 | Hospitalist Progress Note ---
Date of Service April 28, 2020 Assessment & Plan (1) Anemia: Hemoglobin on 04/23 was 7.1. Hemoglobin on 04/24 was 6.8. unclear source of anemia, no overt signs of bleeding (no melena or hematochezia since admission) Hb up to 8.1 today continue to monitor daily, transfuse if < 7 microcytic, ferritin quite low at 12 start on Venofer 200mg IV daily x 5 days (2) Colitis: Colitis of sigmoid colon noted on CT. Place on Cipro 400 mg IV every 12 hours and Flagyl 500 mg IV every 8 hours. NSS at 80 mils per hour -- stop fluids today eating well, no abdominal pain, no diarrhea today WBC normal difficult historian due to dementia will transition to PO antibiotics, complete 10 days total including what she got here (3) Cirrhosis of liver: Liver test normal, follow serially. no signs of decompensation at this time (4) Chronic kidney disease (CKD): Creatinine 1.64 upon admission. down to 1.2 today, making adequate urine via purewick Hypokalemia: K is 3.4, replace with K Phos 21mmol Hypomagnesemia: 1.7, give 1gm IV Hypophosphatemia: replace with K Phos 21mmol (5) SDAT (senile dementia of Alzheimer's type): SDAT/anxiety with depression- resume bupropion, donepezil, Lexapro, gabapentin, and memantine (6) Anxiety with depression: See above (7) Peripheral neuropathy: gabapentin 600 mg p.o. twice daily (8) Hypothyroidism: Reportedly on levothyroxine 75 mcg daily. TSH is 47.7 called [facility], confirmed that she takes her medications she says her dose has varied over the years, used to take up to 450mcg will up the dose further to 125mcg daily repeat TSH in 6 weeks (9) Splenomegaly: Noted Admission and Anticipated Discharge Date Admission Date: April 26, 2020 Subjective patient is awake, sitting up in bed, eating lunch she says she is not having any diarrhea, in fact she has not moved her bowels in two days this is consistent with what nurses have told me she is breathing well on 2L NC, she is on oxygen all the time at [facility] she says at baseline she is in bed and the staff use Katharine lift to get her back into wheelchair she denies abdominal pain we talked about her TSH being elevated, she says her Synthroid dose has varied over the years, at one point she was on as much as 450mcg a day, not able to confirm this labs reviewed, Ferritin low at 12, K 3.4, phos 1.9, Mag 1.7, Cr improved at 1.23 Hb is 8.1 Review of Systems Review of Systems: All systems reviewed & are unremarkable except as noted in HPI & below Constitutional: + fatigue and + weakness Respiratory: no cough and no dyspnea Cardiovascular: no chest pain Gastrointestinal: no abdominal pain, no nausea, no vomiting, no constipation and no diarrhea/loose stools Physical Exam Constitutional: WD/WN, vitals as above + overweight Eyes: PERRL, conjunctivae normal, anicteric sclerae ENMT: external ear and nose normal, oropharynx normal Neck: trachea midline, no thyromegaly Respiratory: normal respiratory effort, lungs clear to auscultation Cardiovascular: RRR, no murmur, no edema Gastrointestinal (Abdomen): normal bowel sounds, soft, nontender, no hepatosplenomegaly Musculoskeletal: no cyanosis or clubbing, extremities motor strength 5/5 Skin: no rashes, warm and dry Neurologic: patellar DTR's 2+ bilat, sensation intact and PERRL, EOMI, accom modation nl, no face palsy, no dysarthria Psychiatric: Orientation: alert, oriented to person, oriented to place and oriented to time Lymphatic: no cervical or axillary lymphadenopathy Results & Data Results & Data ([facility]) Vital Signs (Past 12 Hours) Vital Signs Temp Pulse Pulse Resp BP Pulse Ox 04/28/20 11:40 36.5 C 66 20 96/60 L 97 04/28/20 09:50 74 04/28/20 07:36 36.5 C 70 20 134/72 92 04/28/20 03:08 36.5 C 63 15 155/67 H 92 04/28/20 01:08 61 Laboratory Results Laboratory Results - last 24 hr 04/27/20 04/27/20 04/28/20 16:29 20:18 05:30 WBC RBC Hgb Hct MCV MCH MCHC RDW Std Deviation RDW Coeff of Carlos Plt Count Immature Gran % (Auto) Neut % (Auto) Lymph % (Auto) Brooks % (Auto) Eos % (Auto) Baso % (Auto) Neut # (Auto) Lymph # (Auto) Brooks # (Auto) Eos # (Auto) Baso # (Auto) Immature Gran # (Auto) Platelet Estimate Polychromasia Anisocytosis Ovalocytes PT INR APTT PTT Ratio Sodium 142 Potassium 3.4 L Chloride 111 H Carbon Dioxide 28 Anion Gap 3.0 BUN 14 Creatinine 1.23 H Est Cr Clr Drug Dosing 52.8 Est GFR ( Amer) 52.2 Est GFR (Non-Af Amer) 45.0 BUN/Creatinine Ratio 11.6 Glucose 96 POC Glucose 100 H 103 H Calcium 8.4 L Phosphorus 1.9 L Magnesium 1.7 L Iron 20 L Ferritin 12.3 Total Bilirubin 0.3 AST 9 L ALT 10 L Alkaline Phosphatase 75 Total Protein 6.4 Albumin 2.6 L Globulin 3.8 Albumin/Globulin Ratio 0.7 L 04/28/20 04/28/20 04/28/20 05:30 05:30 07:47 WBC 6.15 RBC 3.55 L Hgb 8.1 L Hct 28.9 L MCV 81.4 MCH 22.8 L MCHC 28.0 L RDW Std Deviation 47.1 H RDW Coeff of Carlos 16.0 H Plt Count 90 L Immature Gran % (Auto) 0.2 Neut % (Auto) 75.4 Lymph % (Auto) 15.4 Brooks % (Auto) 7.3 Eos % (Auto) 1.5 Baso % (Auto) 0.2 Neut # (Auto) 4.64 Lymph # (Auto) 0.95 L Brooks # (Auto) 0.45 Eos # (Auto) 0.09 Baso # (Auto) 0.01 Immature Gran # (Auto) 0.01 Platelet Estimate Decreased L Polychromasia 1+ Anisocytosis Present Ovalocytes 1+ PT 12.4 H INR 1.2 H APTT 30.4 PTT Ratio 1.1 Sodium Potassium Chloride Carbon Dioxide Anion Gap BUN Creatinine Est Cr Clr Drug Dosing Est GFR ( Amer) Est GFR (Non-Af Amer) BUN/Creatinine Ratio Glucose POC Glucose 94 Calcium Phosphorus Magnesium Iron Ferritin Total Bilirubin AST ALT Alkaline Phosphatase Total Protein Albumin Globulin Albumin/Globulin Ratio 04/28/20 11:48 WBC RBC Hgb Hct MCV MCH MCHC RDW Std Deviation RDW Coeff of Carlos Plt Count Immature Gran % (Auto) Neut % (Auto) Lymph % (Auto) Brooks % (Auto) Eos % (Auto) Baso % (Auto) Neut # (Auto) Lymph # (Auto) Brooks # (Auto) Eos # (Auto) Baso # (Auto) Immature Gran # (Auto) Platelet Estimate Polychromasia Anisocytosis Ovalocytes PT INR APTT PTT Ratio Sodium Potassium Chloride Carbon Dioxide Anion Gap BUN Creatinine Est Cr Clr Drug Dosing Est GFR ( Amer) Est GFR (Non-Af Amer) BUN/Creatinine Ratio Glucose POC Glucose 93 Calcium Phosphorus Magnesium Iron Ferritin Total Bilirubin AST ALT Alkaline Phosphatase Total Protein Albumin Globulin Albumin/Globulin Ratio Medications Administered Current Inpatient Medications Aspirin (Ecotrin Ectab) 81 mg PO DAILY [facility] Stop: 05/27/20 08:59 Last Admin: 04/28/20 08:23 Dose: 81 mg Documented by: Bupropion HCl (Wellbutrin-Xl) 150 mg PO BID [facility] Stop: 05/26/20 20:59 Last Admin: 04/28/20 08:24 Dose: 150 mg Documented by: Carvedilol (Coreg) 12.5 mg PO BID [facility] Stop: 05/26/20 20:59 Last Admin: 04/28/20 08:22 Dose: 12.5 mg Documented by: Dextrose (Dextrose 50%) 25 - 50 ml IV UD PRN; Protocol PRN Reason: Hypoglycemia Protocol Stop: 05/26/20 02:51 Donepezil HCl (Aricept) 10 mg PO DAILY [facility] Stop: 05/27/20 08:59 Last Admin: 04/28/20 08:22 Dose: 10 mg Documented by: Duloxetine HCl (Cymbalta) 20 mg PO DAILY [facility] Stop: 05/27/20 08:59 Last Admin: 04/28/20 08:22 Dose: 20 mg Documented by: Escitalopram Oxalate (Lexapro Tab) 10 mg PO DAILY [facility] Stop: 05/27/20 08:59 Last Admin: 04/28/20 08:23 Dose: 10 mg Documented by: Gabapentin (Neurontin) 600 mg PO TID [facility] Stop: 05/26/20 13:59 Last Admin: 04/28/20 08:24 Dose: 600 mg Documented by: Glucagon (Glucagen) 1 mg SQ UD PRN; Protocol PRN Reason: Hypoglycemia Protocol Stop: 05/26/20 02:51 Glucose (Dex4 Glucose) 4 - 8 tabs PO UD PRN; Protocol PRN Reason: Hypoglycemia Protocol Stop: 05/26/20 02:51 Glucose (Glucose 40%) 15 - 30 gm PO UD PRN; Protocol PRN Reason: Hypoglycemia Protocol Stop: 05/26/20 02:51 Ciprofloxacin (Cipro) 400 mg in 200 mls @ 200 mls/hr IV Q12H [facility] Stop: 05/06/20 03:59 Last Infusion: 04/28/20 06:13 Dose: Infused Documented by: Metronidazole (Flagyl) 500 mg in 100 mls @ 100 mls/hr IV Q8H [facility] Stop: 05/06/20 03:59 Last Admin: 04/28/20 12:48 Dose: 100 mls/hr Documented by: Famotidine 20 mg/ Syringe 5 mls @ 2.5 mls/min IV Q12H [facility] Stop: 05/26/20 08:59 Last Admin: 04/28/20 08:31 Dose: 2.5 mls/min Documented by: Iron Sucrose 200 mg/ Sodium (Chloride) 110 mls @ 150 mls/hr IV DAILY@1000 [facility] Stop: 05/03/20 09:59 Potassium Phosphate 21 mmol/ (Sodium Chloride) 507 mls @ 88 mls/hr IV 0800 [facility] Stop: 04/28/20 13:45 Last Admin: 04/28/20 08:22 Dose: 88 mls/hr Documented by: Insulin Aspart (Novolog Flexpen) 0 units SC ACHS [facility] Stop: 05/26/20 07:29 Last Admin: 04/28/20 12:48 Dose: 4 units Documented by: Insulin Glargine (Lantus Solostar Pen) 30 units SQ HS [facility] Stop: 05/26/20 20:59 Last Admin: 04/27/20 20:40 Dose: 30 units Documented by: Insulin Glargine (Lantus Solostar Pen) 20 units SQ QAM [facility] Stop: 05/27/20 08:59 Last Admin: 04/28/20 08:23 Dose: 20 units Documented by: Levothyroxine Sodium (Synthroid) 125 mcg PO DAILYBB [facility] Stop: 05/29/20 06:29 Memantine (Namenda) 10 mg PO BID [facility] Stop: 05/26/20 20:59 Last Admin: 04/28/20 08:23 Dose: 10 mg Documented by: Miconazole Nitrate (Desenex) 1 appln EXT PRN PRN PRN Reason: AFFECTED SKIN FOLDS Stop: 05/26/20 09:46 Miscellaneous (Carbohydrates For Hypoglycemia) 15 - 30 gm PO UD PRN PRN Reason: Hypoglycemia Protocol Stop: 05/26/20 02:51 Montelukast Sodium (Singulair) 10 mg PO HS [facility] Stop: 05/26/20 20:59 Last Admin: 04/27/20 20:52 Dose: 10 mg Documented by: Ondansetron HCl (Zofran) 4 mg IV Q6H PRN PRN Reason: Nausea Stop: 05/26/20 02:51 Ondansetron HCl (Zofran) 4 mg IV Q6H PRN PRN Reason: NAUSEA/VOMITING Stop: 05/26/20 04:07 Pantoprazole Sodium (Protonix) 40 mg PO DAILY [facility] Stop: 05/27/20 08:59 Last Admin: 04/28/20 08:24 Dose: 40 mg Documented by: PG Care Time/CCT Total # of Minutes Spent Total Time Spent with Patient: Total time spent is greater than 50% in coordination of care (as documented) at patient's floor/unit and/or counseling patient: Coding Level of Care Code 46189 Subseq Hosp Care Lvl 3 Diagnoses Anemia D64.9 Anemia type: unspecified type Colitis K52.9 Cirrhosis of liver K74.60 Chronic kidney disease (CKD) N18.9 SDAT (senile dementia of Alzheimer's type) G30.1; F02.80 Anxiety with depression F41.8 Peripheral neuropathy G62.9 Hypothyroidism E03.9 Splenomegaly R16.1 (1) Anemia Anemia type: unspecified type Qualified Code(s): D64.9 - Anemia, unspecified
[2020-04-28] MEDS: IRON SUCROSE 200 MG in 0.9 % SODIUM CHLORIDE 100 ML IV SCH (14:20)
[2020-04-28] MEDS: CIPROFLOXACIN 500 MG TAB PO SCH (16:32)
[2020-04-28] MEDS: metroNIDAZOLE 500 MG TAB PO SCH (20:21)
[2020-04-28] MEDS: MONTELUKAST SODIUM 10 MG TABLET PO SCH (20:21)
[2020-04-28 20:43] LABS: Appearance Urine Clear (Clear); Bacteria Urine Automated Negative (Negative); Bilirubin Urine Negative (Negative); Blood Urine Negative (Negative); Cast Urine Automated 0 /lpf (0-5); Color Urine Dark Yellow; Epithelial Cell Urine Auto 20-30 /lpf (0-5); Glucose Urine UA Negative (Negative); Ketones Urine Negative (Negative); Leukocyte Esterase Urine Negative (Negative); Nitrite Urine Positive (Negative); Protein Urine Negative (Negative); RBC Urine Automated 0-4 /hpf (0-4); Specific Gravity Urine 1.019 (1.000-1.030); Urobilinogen Urine Negative (Negative)
[2020-04-29] MEDS: LEVOTHYROXINE SODIUM 125 MCG TABLET PO SCH (05:30)
[2020-04-29 06:21] LABS: Hematocrit (blood only) 28.7 % (37-47); Hemoglobin 8.1 g/dL (12.0-16.0); Mean Corpuscular Hemoglobin 22.6 pg (25-34); Mean Corpuscular Hgb Conc 28.2 g/dL (32-36); Mean Corpuscular Volume 80.2 fL (80-100); Platelet Count 102 K/uL (130-400); Platelet Estimate Decreased (Normal); RDW Coefficient of Variation 16.7 % (11.5-14.5); RDW Standard Deviation 47.8 fL (36.4-46.3); Red Blood Count 3.58 M/uL (4.2-5.4); White Blood Count 6.86 K/uL (4.8-10.8)
[2020-04-29 06:23] LABS: BUN Creatinine Ratio 9.4 (10-20); Calcium 8.3 mg/dl (8.5-10.1); Creatinine Clr Calc Pharmacy 47.7 ml/min; Est GFR (African American) 46.2; Est GFR (Non-African American) 39.9; Phosphorus 2.2 mg/dl (2.5-4.9); Potassium 3.9 mmol/L (3.5-5.1)
[2020-04-29] MEDS ORDERED: POTASSIUM PHOS 3 MMOL/1 ML INFUSION IV STA (07:08)
[2020-04-29] MEDS ORDERED: POTASSIUM PHOSPHATE 9 MMOL in SODIUM CHLORIDE 0.9% 250 ML IV ONE (07:30)
[2020-04-29] MEDS: DONEPEZIL HCL 10 MG TAB PO SCH (09:04)
[2020-04-29] MEDS: carvediloL 12.5 MG TAB PO SCH ×2 (09:05→20:30)
[2020-04-29] MEDS: ASPIRIN 81 MG ECTAB PO SCH (09:05)
[2020-04-29] MEDS: metroNIDAZOLE 500 MG TAB PO SCH ×3 (09:05→20:31)
[2020-04-29] MEDS: CIPROFLOXACIN 500 MG TAB PO SCH ×2 (09:05→20:31)
[2020-04-29] MEDS: ESCITALOPRAM OXALATE 10 MG TAB PO SCH (09:05)
[2020-04-29] MEDS: MEMANTINE HCL 10 MG TAB PO SCH ×2 (09:05→20:30)
[2020-04-29] MEDS: DULOXETINE HCL 20 MG CAP PO SCH (09:05)
[2020-04-29] MEDS: FAMOTIDINE 20 MG in SYRINGE 3 ML IV SCH (09:06)
[2020-04-29] MEDS: GABAPENTIN 600 MG TAB PO SCH ×3 (09:06→20:30)
[2020-04-29] MEDS: PANTOprazole 40 MG TAB PO SCH (09:06)
[2020-04-29] MEDS: BuPROPion XL 150 MG TABCR PO SCH ×2 (09:06→20:29)
[2020-04-29] MEDS: INSULIN GLARGINE SOLOSTAR 100 UNITS/ML 3 ML PEN SQ SCH ×2 (09:13→20:31)
[2020-04-29] MEDS: INSULIN ASPART 100 UNITS/ML 3 ML PEN SC SCH ×4 (09:13→20:36)
[2020-04-29] MEDS: ONDANSETRON INJ 2 MG/ML 2 ML VIAL IV PRN (11:55)
[2020-04-29] MEDS: IRON SUCROSE 200 MG in 0.9 % SODIUM CHLORIDE 100 ML IV SCH (12:09)
--- NOTE | 2020-04-29 13:12 | Hospitalist Progress Note ---
Date of Service April 29, 2020 Assessment & Plan (1) Anemia: Hemoglobin on 04/23 was 7.1. Hemoglobin on 04/24 was 6.8. unclear source of anemia, no overt signs of bleeding (no melena or hematochezia since admission) Hb stable at 8.1 today continue to monitor daily, transfuse if < 7 microcytic, ferritin quite low at 12 start on Venofer 200mg IV daily x 5 days, today is day 2 (2) Colitis: Colitis of sigmoid colon noted on CT. Place on Cipro 400 mg IV every 12 hours and Flagyl 500 mg IV every 8 hours. NSS at 80 mils per hour -- stop fluids 04/28 eating well, no abdominal pain, no diarrhea had a solid BM on 04/29 WBC normal difficult historian due to dementia will transition to PO antibiotics, complete 10 days total including what she got here (3) Cirrhosis of liver: Liver test normal, follow serially. no signs of decompensation at this time (4) Chronic kidney disease (CKD): Creatinine 1.64 upon admission. down to 1.36 today, making adequate urine via purewick Hypokalemia: K is 3.9 today after IV replacement yesterday Hypomagnesemia: 2.0 today after IV replacement yesterday Hypophosphatemia: still a little low at 2.2, will give 9mmol of K PHos today (5) SDAT (senile dementia of Alzheimer's type): SDAT/anxiety with depression- resume bupropion, donepezil, Lexapro, gabapentin, and memantine (6) Anxiety with depression: See above (7) Peripheral neuropathy: gabapentin 600 mg p.o. twice daily (8) Hypothyroidism: Reportedly on levothyroxine 75 mcg daily. TSH is 47.7 called [facility], confirmed that she takes her medications she says her dose has varied over the years, used to take up to 450mcg will up the dose further to 125mcg daily repeat TSH in 6 weeks (9) Splenomegaly: Noted Admission and Anticipated Discharge Date Admission Date: April 26, 2020 Plan: [facility], COVID screen pending, at baseline she is bedbound, use Katharine lift to get to wheelchair no need for PT/OT since she does not transfer or ambulate at baseline Anticipated date of discharge: 05/01/20 Subjective patient doing okay today, eating more but having some nausea no fever or chills she had a solid BM today, no abdominal pain, this is first BM in several days no dyspnea, no cough, no chest pain reviewed labs, WBC 6.8, Hb 8.1, plts 102k, Cr 1.36, phosphorus 2.2 Review of Systems Review of Systems: All systems reviewed & are unremarkable except as noted in HPI & below Gastrointestinal: + nausea; no abdominal pain, no vomiting, no constipation, no diarrhea/loose stools and no melena Physical Exam Constitutional: WD/WN, vitals as above + overweight Eyes: PERRL, conjunctivae normal, anicteric sclerae ENMT: external ear and nose normal, oropharynx normal Neck: trachea midline, no thyromegaly Respiratory: normal respiratory effort, lungs clear to auscultation Cardiovascular: RRR, no murmur, no edema Gastrointestinal (Abdomen): normal bowel sounds, soft, nontender, no hepato splenomegaly Musculoskeletal: no cyanosis or clubbing, extremities motor strength 5/5 Skin: no rashes, warm and dry Neurologic: patellar DTR's 2+ bilat, sensation intact and PERRL, EOMI, accommodation nl, no face palsy, no dysarthria Psychiatric: Orientation: alert, oriented to person, oriented to place and oriented to time Lymphatic: no cervical or axillary lymphadenopathy Results & Data Results & Data ([facility]) Vital Signs (Past 12 Hours) Vital Signs Temp Pulse Pulse Resp BP Pulse Ox 04/29/20 12:13 36.6 C 69 18 153/80 H 100 04/29/20 08:01 36.5 C 56 L 18 144/63 H 100 04/29/20 07:19 62 04/29/20 05:52 67 04/29/20 03:25 36.6 C 96 H 20 132/69 96 Laboratory Results Laboratory Results - last 24 hr 04/25/20 04/28/20 04/28/20 22:43 16:32 20:30 WBC RBC Hgb Hct MCV MCH MCHC RDW Std Deviation RDW Coeff of Carlos Plt Count Platelet Estimate Sodium Potassium Chloride Carbon Dioxide Anion Gap BUN Creatinine Est Cr Clr Drug Dosing Est GFR ( Amer) Est GFR (Non-Af Amer) BUN/Creatinine Ratio Glucose POC Glucose 82 Calcium Phosphorus Magnesium Urine Color Dark Yellow Urine Appearance Clear Urine pH 5.0 Ur Specific Eugene 1.019 Urine Protein Negative Urine Glucose (UA) Negative Urine Ketones Negative Urine Blood Negative Urine Nitrite Positive A Urine Bilirubin Negative Urine Urobilinogen Negative Ur Leukocyte Esterase Negative Urine WBC (Auto) 1-5 Urine RBC (Auto) 0-4 U Hyaline Cast (Auto) 0 U Epithel Cells (Auto) 20-30 H Urine Bacteria (Auto) Negative Stl C. diff Tox B Gene Crossmatch See Detail 04/28/20 04/29/20 04/29/20 20:37 05:39 05:39 WBC 6.86 RBC 3.58 L Hgb 8.1 L Hct 28.7 L MCV 80.2 MCH 22.6 L MCHC 28.2 L RDW Std Deviation 47.8 H RDW Coeff of Carlos 16.7 H Plt Count 102 L Platelet Estimate Decreased L Sodium 142 Potassium 3.9 Chloride 110 H Carbon Dioxide 31 Anion Gap 1.0 L BUN 13 Creatinine 1.36 H Est Cr Clr Drug Dosing 47.7 Est GFR ( Amer) 46.2 Est GFR (Non-Af Amer) 39.9 BUN/Creatinine Ratio 9.4 L Glucose 71 POC Glucose 100 H Calcium 8.3 L Phosphorus 2.2 L Magnesium 2.0 Urine Color Urine Appearance Urine pH Ur Specific Eugene Urine Protein Urine Glucose (UA) Urine Ketones Urine Blood Urine Nitrite Urine Bilirubin Urine Urobilinogen Ur Leukocyte Esterase Urine WBC (Auto) Urine RBC (Auto) U Hyaline Cast (Auto) U Epithel Cells (Auto) Urine Bacteria (Auto) Stl C. diff Tox B Gene Crossmatch 04/29/20 04/29/20 04/29/20 07:35 09:50 11:49 WBC RBC Hgb Hct MCV MCH MCHC RDW Std Deviation RDW Coeff of Carlos Plt Count Platelet Estimate Sodium Potassium Chloride Carbon Dioxide Anion Gap BUN Creatinine Est Cr Clr Drug Dosing Est GFR ( Amer) Est GFR (Non-Af Amer) BUN/Creatinine Ratio Glucose POC Glucose 81 76 Calcium Phosphorus Magnesium Urine Color Urine Appearance Urine pH Ur Specific Eugene Urine Protein Urine Glucose (UA) Urine Ketones Urine Blood Urine Nitrite Urine Bilirubin Urine Urobilinogen Ur Leukocyte Esterase Urine WBC (Auto) Urine RBC (Auto) U Hyaline Cast (Auto) U Epithel Cells (Auto) Urine Bacteria (Auto) Stl C. diff Tox B Gene Negative Cdiff Gene Crossmatch Medications Administered Current Inpatient Medications Aspirin (Ecotrin Ectab) 81 mg PO DAILY [facility] Stop: 05/27/20 08:59 Last Admin: 04/29/20 09:05 Dose: 81 mg Documented by: Bupropion HCl (Wellbutrin-Xl) 150 mg PO BID [facility] Stop: 05/26/20 20:59 Last Admin: 04/29/20 09:06 Dose: 150 mg Documented by: Carvedilol (Coreg) 12.5 mg PO BID [facility] Stop: 05/26/20 20:59 Last Admin: 04/29/20 09:05 Dose: Not Given Documented by: Ciprofloxacin (Cipro) 500 mg PO BID [facility] Stop: 05/06/20 16:59 Last Admin: 04/29/20 09:05 Dose: 500 mg Documented by: Dextrose (Dextrose 50%) 25 - 50 ml IV UD PRN; Protocol PRN Reason: Hypoglycemia Protocol Stop: 05/26/20 02:51 Donepezil HCl (Aricept) 10 mg PO DAILY [facility] Stop: 05/27/20 08:59 Last Admin: 04/29/20 09:04 Dose: 10 mg Documented by: Duloxetine HCl (Cymbalta) 20 mg PO DAILY [facility] Stop: 05/27/20 08:59 Last Admin: 04/29/20 09:05 Dose: 20 mg Documented by: Escitalopram Oxalate (Lexapro Tab) 10 mg PO DAILY [facility] Stop: 05/27/20 08:59 Last Admin: 04/29/20 09:05 Dose: 10 mg Documented by: Famotidine (Pepcid) 20 mg PO BID [facility]; Protocol Stop: 05/29/20 20:59 Gabapentin (Neurontin) 600 mg PO TID [facility] Stop: 05/26/20 13:59 Last Admin: 04/29/20 09:06 Dose: 600 mg Documented by: Glucagon (Glucagen) 1 mg SQ UD PRN; Protocol PRN Reason: Hypoglycemia Protocol Stop: 05/26/20 02:51 Glucose (Dex4 Glucose) 4 - 8 tabs PO UD PRN; Protocol PRN Reason: Hypoglycemia Protocol Stop: 05/26/20 02:51 Glucose (Glucose 40%) 15 - 30 gm PO UD PRN; Protocol PRN Reason: Hypoglycemia Protocol Stop: 05/26/20 02:51 Iron Sucrose 200 mg/ Sodium (Chloride) 110 mls @ 150 mls/hr IV DAILY@1000 [facility] Stop: 05/03/20 09:59 Last Admin: 04/29/20 12:09 Dose: 150 mls/hr Documented by: Insulin Aspart (Novolog Flexpen) 0 units SC ACHS [facility] Stop: 05/26/20 07:29 Last Admin: 04/29/20 12:06 Dose: 4 units Documented by: Insulin Glargine (Lantus Solostar Pen) 20 units SQ BID [facility] Stop: 05/28/20 20:59 Last Admin: 04/29/20 09:13 Dose: 20 units Documented by: Levothyroxine Sodium (Synthroid) 125 mcg PO DAILYBB [facility] Stop: 05/29/20 06:29 Last Admin: 04/29/20 05:30 Dose: 125 mcg Documented by: Memantine (Namenda) 10 mg PO BID [facility] Stop: 05/26/20 20:59 Last Admin: 04/29/20 09:05 Dose: 10 mg Documented by: Metronidazole (Flagyl) 500 mg PO TID [facility] Stop: 05/06/20 20:59 Last Admin: 04/29/20 09:05 Dose: 500 mg Documented by: Miconazole Nitrate (Desenex) 1 appln EXT PRN PRN PRN Reason: AFFECTED SKIN FOLDS Stop: 05/26/20 09:46 Miscellaneous (Carbohydrates For Hypoglycemia) 15 - 30 gm PO UD PRN PRN Reason: Hypoglycemia Protocol Stop: 05/26/20 02:51 Montelukast Sodium (Singulair) 10 mg PO HS [facility] Stop: 05/26/20 20:59 Last Admin: 04/28/20 20:21 Dose: 10 mg Documented by: Ondansetron HCl (Zofran) 4 mg IV Q4H PRN PRN Reason: Nausea Stop: 05/26/20 02:51 Last Admin: 04/29/20 11:55 Dose: 4 mg Documented by: Pantoprazole Sodium (Protonix) 40 mg PO DAILY [facility] Stop: 05/27/20 08:59 Last Admin: 04/29/20 09:06 Dose: 40 mg Documented by: PG Care Time/CCT Total # of Minutes Spent Total Time Spent with Patient: Total time spent is greater than 50% in coordination of care (as documented) at patient's floor/unit and/or counseling patient: Coding Level of Care Code 74868 Subseq Hosp Care Lvl 3 Diagnoses Anemia D64.9 Anemia type: unspecified type Colitis K52.9 Cirrhosis of liver K74.60 Chronic kidney disease (CKD) N18.9 SDAT (senile dementia of Alzheimer's type) G30.1; F02.80 Anxiety with depression F41.8 Peripheral neuropathy G62.9 Hypothyroidism E03.9 Splenomegaly R16.1 (1) Anemia Anemia type: unspecified type Qualified Code(s): D64.9 - Anemia, unspecified
[2020-04-29] MEDS: FAMOTIDINE 20 MG TAB PO SCH (20:29)
[2020-04-29] MEDS: MONTELUKAST SODIUM 10 MG TABLET PO SCH (20:30)
[2020-04-30] MEDS: LEVOTHYROXINE SODIUM 125 MCG TABLET PO SCH (05:11)
[2020-04-30 07:57] LABS: BUN Creatinine Ratio 8.5 (10-20); Calcium 8.5 mg/dl (8.5-10.1); Creatinine Clr Calc Pharmacy 49.3 ml/min; Est GFR (African American) 47.9; Est GFR (Non-African American) 41.3; Magnesium 2.1 mg/dl (1.8-2.4); Potassium 3.7 mmol/L (3.5-5.1)
[2020-04-30 07:58] LABS: Hematocrit (blood only) 30.8 % (37-47); Hemoglobin 8.6 g/dL (12.0-16.0); Mean Corpuscular Hemoglobin 22.5 pg (25-34); Mean Corpuscular Hgb Conc 27.9 g/dL (32-36); Mean Corpuscular Volume 80.4 fL (80-100); Phosphorus 2.5 mg/dl (2.5-4.9); Platelet Count 92 K/uL (130-400); RDW Standard Deviation 48.6 fL (36.4-46.3); Red Blood Count 3.83 M/uL (4.2-5.4); White Blood Count 6.61 K/uL (4.8-10.8)
[2020-04-30 07:59] LABS: Platelet Estimate Decreased (Normal)
[2020-04-30] MEDS: CIPROFLOXACIN 500 MG TAB PO SCH ×3 (09:45→21:25)
[2020-04-30] MEDS: metroNIDAZOLE 500 MG TAB PO SCH ×4 (09:45→21:26)
[2020-04-30] MEDS: carvediloL 12.5 MG TAB PO SCH ×3 (09:45→21:27)
[2020-04-30] MEDS: DULOXETINE HCL 20 MG CAP PO SCH (09:45)
[2020-04-30] MEDS: ASPIRIN 81 MG ECTAB PO SCH (09:45)
[2020-04-30] MEDS: DONEPEZIL HCL 10 MG TAB PO SCH (09:45)
[2020-04-30] MEDS: PANTOprazole 40 MG TAB PO SCH (09:46)
[2020-04-30] MEDS: GABAPENTIN 600 MG TAB PO SCH ×3 (09:46→14:03)
[2020-04-30] MEDS: BuPROPion XL 150 MG TABCR PO SCH ×2 (09:46→21:26)
[2020-04-30] MEDS: FAMOTIDINE 20 MG TAB PO SCH ×3 (09:46→21:26)
[2020-04-30] MEDS: ESCITALOPRAM OXALATE 10 MG TAB PO SCH (09:46)
[2020-04-30] MEDS: MEMANTINE HCL 10 MG TAB PO SCH ×3 (09:46→21:25)
[2020-04-30] MEDS: INSULIN ASPART 100 UNITS/ML 3 ML PEN SC SCH ×4 (09:49→21:27)
[2020-04-30] MEDS: INSULIN GLARGINE SOLOSTAR 100 UNITS/ML 3 ML PEN SQ SCH ×2 (09:50→21:27)
[2020-04-30] MEDS: IRON SUCROSE 200 MG in 0.9 % SODIUM CHLORIDE 100 ML IV SCH (09:52)
[2020-04-30] MEDS: ONDANSETRON INJ 2 MG/ML 2 ML VIAL IV PRN (11:47)
--- NOTE | 2020-04-30 13:53 | Hospitalist Progress Note ---
Date of Service April 30, 2020 Assessment & Plan (1) Encephalopathy acute: Suspect combination of decompensated hypothyroidism, mildly elevated ammonia levels, and mild respiratory acidosis. Thyroid medication has been adjusted. Lactulose given for ammonia. BIPAP started for respiratory acidosis. I do not think current clinical presentation is due to myxedema coma. (2) Acute respiratory acidosis: Hypercarbia likely due to multiple metabolic derangements in the setting of probable obesity-hypoventilation syndrome/ROBIN. Start BIPAP 12/5; increase to 14/5 if necessary. Really should be on BIPAP at HS every night. Uncertain if ever had formal sleep study in the past. (3) Chronic respiratory failure with hypoxia: On continous NC O2 at snf. (4) Anemia: Hemoglobin on 04/23 was 7.1. s/p 1 unit PRBCs this admission. H/H stable since the PRBCs. Iron studies c/w iron deficiency anemia. B12 level this afternoon wnl. Continues on venofer 200mg IV daily x 5 days, today is day 3. no overt GI bleeding while here. Poor candidate for endoscopic evaluation in light of mental status. I cannot rule out anemia due to cirrhosis. Repeat CBC am. (5) Colitis: Colitis of sigmoid colon noted on CT. Remains on cipro and flagyl, day # 5 of such. had a solid BM on 04/29 and no GI symptoms or signs today. Diverticulitis?? (6) Cirrhosis of liver: suspect due to THOMAS. see above re: ammonia levels. (7) Chronic kidney disease (CKD): stage 3 at baseline. Cr stable today. (8) SDAT (senile dementia of Alzheimer's type): per EMR. also with depression/anxiety. cont bupropion, donepezil, Lexapro, gabapentin, and memantine. (9) Anxiety with depression: meds as above. (10) Peripheral neuropathy: Reduce gabapentin to 400 mg p.o. twice daily in case gabapentin is contributing to encephalopathy/fatigue. (11) Hypothyroidism: DECOMPENSATED. Reportedly on levothyroxine 75 mcg daily at [facility]. TSH 47.7 at admission. [facility] contacted and they confirmed that she takes her medications as directed. In the past her dose was up to 450mcg/day! Dose increased to 125mcg daily by previous hospitalist. Repeat TSH in 4-6 weeks. Again I do not believe she has myxedema coma (unless symptoms persist despite treating hypercarbia and elevated ammonia levels). (12) Splenomegaly: Noted 2nd cirrhosis this is causing mild thrombocytopenia daily or QOD cbc for stability (13) Morbid obesity with BMI of 45.0-49.9, adult: BMI 49.9 (14) DVT prophylaxis: given severe morbid obesity and largely bed-bound status along w/ cirrhosis -- at risk of VTE -- heparin 7500 units TID updated Gerardo, her brother, by phone left message for daughter as well both on 04/30 Admission and Anticipated Discharge Date Admission Date: April 26, 2020 Subjective tele wnl overnight. staff report patient is very sleepy. despite such did eat breakfast well this am. upon my arrival she was sleeping. easily awoke. c/o feeling tired "for about 2 weeks." sleeping all day; no energy; fatigued, can't do anything. feels achy, but present "for years." no fevers/chills. is on NC O2 at [facility]. Review of Systems Constitutional: + fatigue and + malaise; no anorexia Ear, Nose, Mouth, Throat: no sore throat Respiratory: no cough and no dyspnea (at rest ) Cardiovascular: no chest pain Gastrointestinal: no abdominal pain, no nausea and no vomiting Physical Exam Constitutional: + morbidly obese and + altered mental status (mild, but knew she was in hospital and it was 2019); no acute distress ENMT: external ear and nose normal, oropharynx normal Respiratory: normal respiratory effort, lungs clear to auscultation no respiratory distress Auscultation: + diminished lung sounds (bases) Cardiovascular: Rate/Rhythm: regular rate Heart Sounds: normal S1, normal S2 and + murmur (2/6 LSB systolic ) Vessels: posterior tibial pulses present and dorsalis pedis pulses present; no JVD Extremities: + edema Gastrointestinal (Abdomen): normal bowel sounds, soft, nontender, no hepatosplenomegaly Musculoskeletal: no synovitis of any small joint of hands Neurologic: Motor/Sensory: no tremor and no asterixis Results & Data Results & Data ([facility]) Vital Signs (Past 12 Hours) Vital Signs Temp Pulse Pulse Resp BP BP Pulse Ox 04/30/20 12:49 36.9 C 57 L 16 146/76 H 100 04/30/20 07:48 36.6 C 58 L 18 147/68 H 100 04/30/20 07:19 68 04/30/20 04:40 36.4 C L 55 L 18 92/56 L 97 04/30/20 03:24 63 Laboratory Results Laboratory Results - last 24 hr 04/26/20 04/29/20 04/30/20 17:25 20:22 06:51 WBC 6.61 RBC 3.83 L Hgb 8.6 L Hct 30.8 L MCV 80.4 MCH 22.5 L MCHC 27.9 L RDW Std Deviation 48.6 H RDW Coeff of Carlos 17.0 H Plt Count 92 L Platelet Estimate Decreased L VBG pH VBG pCO2 VBG pO2 VBG HCO3 VBG O2 Saturation VBG Base Excess Barometric Pressure Sodium Potassium Chloride Carbon Dioxide Anion Gap BUN Creatinine Est Cr Clr Drug Dosing Est GFR ( Amer) Est GFR (Non-Af Amer) BUN/Creatinine Ratio Glucose POC Glucose 91 Calcium Phosphorus Magnesium Ammonia Vitamin B12 SARS-CoV-2 RNA (RT-PCR) NEGATIVE 04/30/20 04/30/20 04/30/20 06:51 09:28 12:06 WBC RBC Hgb Hct MCV MCH MCHC RDW Std Deviation RDW Coeff of Carlos Plt Count Platelet Estimate VBG pH VBG pCO2 VBG pO2 VBG HCO3 VBG O2 Saturation VBG Base Excess Barometric Pressure Sodium 141 Potassium 3.7 Chloride 110 H Carbon Dioxide 30 Anion Gap 1.0 L BUN 11 Creatinine 1.32 H Est Cr Clr Drug Dosing 49.3 Est GFR ( Amer) 47.9 Est GFR (Non-Af Amer) 41.3 BUN/Creatinine Ratio 8.5 L Glucose 73 POC Glucose 71 75 Calcium 8.5 Phosphorus 2.5 Magnesium 2.1 Ammonia Vitamin B12 SARS-CoV-2 RNA (RT-PCR) 04/30/20 04/30/20 04/30/20 14:51 14:51 14:51 WBC RBC Hgb Hct MCV MCH MCHC RDW Std Deviation RDW Coeff of Carlos Plt Count Platelet Estimate VBG pH 7.30 L VBG pCO2 61 H VBG pO2 26 VBG HCO3 29 VBG O2 Saturation < 60.0 VBG Base Excess 1.5 Barometric Pressure 730.0 Sodium Potassium Chloride Carbon Dioxide Anion Gap BUN Creatinine Est Cr Clr Drug Dosing Est GFR ( Amer) Est GFR (Non-Af Amer) BUN/Creatinine Ratio Glucose POC Glucose Calcium Phosphorus Magnesium Ammonia 38.8 H Vitamin B12 422 SARS-CoV-2 RNA (RT-PCR) 04/30/20 16:36 WBC RBC Hgb Hct MCV MCH MCHC RDW Std Deviation RDW Coeff of Carlos Plt Count Platelet Estimate VBG pH VBG pCO2 VBG pO2 VBG HCO3 VBG O2 Saturation VBG Base Excess Barometric Pressure Sodium Potassium Chloride Carbon Dioxide Anion Gap BUN Creatinine Est Cr Clr Drug Dosing Est GFR ( Amer) Est GFR (Non-Af Amer) BUN/Creatinine Ratio Glucose POC Glucose 99 Calcium Phosphorus Magnesium Ammonia Vitamin B12 SARS-CoV-2 RNA (RT-PCR) PG Care Time/CCT Total # of Minutes Spent Total Time Spent with Patient: Total time spent is greater than 50% in coordination of care (as documented) at patient's floor/unit and/or counseling patient: Coding Level of Care Code 43947 Subseq Hosp Care Lvl 3 Diagnoses Encephalopathy acute G93.40 Acute respiratory acidosis E87.2 Chronic respiratory failure with hypoxia J96.11 Anemia D64.9 Anemia type: unspecified type Colitis K52.9 Cirrhosis of liver K74.60 Hepatic cirrhosis type: unspecified hepatic cirrhosis Ascites presence: without ascites Chronic kidney disease (CKD) N18.3 Chronic kidney disease stage: stage 3 (moderate) SDAT (senile dementia of Alzheimer's type) G30.1; F02.80 Anxiety with depression F41.8 Peripheral neuropathy G62.9 Peripheral neuropathy type: polyneuropathy, unspecified Hypothyroidism E03.9 Hypothyroidism type: acquired Splenomegaly R16.1 Morbid obesity with BMI of 45.0-49.9, adult E66.01; Z68.42 DVT prophylaxis Z29.9 (1) Anemia Anemia type: unspecified type Qualified Code(s): D64.9 - Anemia, unspecified (2) Cirrhosis of liver Hepatic cirrhosis type: unspecified hepatic cirrhosis Ascites presence: without ascites Qualified Code(s): K74.60 - Unspecified cirrhosis of liver (3) Chronic kidney disease (CKD) Chronic kidney disease stage: stage 3 (moderate) Qualified Code(s): N18.3 - Chronic kidney disease, stage 3 (moderate) (4) Peripheral neuropathy Peripheral neuropathy type: polyneuropathy, unspecified Qualified Code(s): G62.9 - Polyneuropathy, unspecified (5) Hypothyroidism Hypothyroidism type: acquired Qualified Code(s): E03.9 - Hypothyroidism, unspecified
[2020-04-30 15:12] LABS: Base Excess VBG 1.5 mEq/L; HCO3 VBG 29 mmol/L; PCO2 VBG 61 mmHg (38-50); PO2 VBG 26 mmHg
[2020-04-30] MEDS ORDERED: LACTULOSE SYRUP 20 GM/30 ML UDC PO STA (15:51)
[2020-04-30 16:01] LABS: Oxygen Saturation VBG < 60.0 %
[2020-04-30] MEDS: GABAPENTIN 400 MG CAP PO SCH (21:25)
[2020-04-30] MEDS: MONTELUKAST SODIUM 10 MG TABLET PO SCH (21:27)
[2020-04-30] MEDS: HEPARIN SODIUM (PORCINE) 7,500 UNITS in SYRINGE 0 ML SQ SCH (21:30)
[2020-05-01] MEDS: LEVOTHYROXINE SODIUM 125 MCG TABLET PO SCH (05:38)
[2020-05-01] MEDS: HEPARIN SODIUM (PORCINE) 7,500 UNITS in SYRINGE 0 ML SQ SCH ×3 (05:38→20:35)
[2020-05-01 07:29] LABS: BUN Creatinine Ratio 7.4 (10-20); Calcium 8.3 mg/dl (8.5-10.1); Creatinine Clr Calc Pharmacy 47.8 ml/min; Est GFR (African American) 46.6; Est GFR (Non-African American) 40.2; Potassium 3.7 mmol/L (3.5-5.1)
[2020-05-01 07:37] LABS: Hematocrit (blood only) 30.8 % (37-47); Hemoglobin 8.6 g/dL (12.0-16.0); Mean Corpuscular Hemoglobin 22.6 pg (25-34); Mean Corpuscular Hgb Conc 27.9 g/dL (32-36); Mean Corpuscular Volume 81.1 fL (80-100); Platelet Count 92 K/uL (130-400); Platelet Estimate Decreased (Normal); RDW Coefficient of Variation 17.3 % (11.5-14.5); RDW Standard Deviation 49.1 fL (36.4-46.3)
[2020-05-01] MEDS: ASPIRIN 81 MG ECTAB PO SCH (08:42)
[2020-05-01] MEDS: CIPROFLOXACIN 500 MG TAB PO SCH ×2 (08:42→20:35)
[2020-05-01] MEDS: PANTOprazole 40 MG TAB PO SCH (08:43)
[2020-05-01] MEDS: GABAPENTIN 400 MG CAP PO SCH ×3 (08:43→20:37)
[2020-05-01] MEDS: DONEPEZIL HCL 10 MG TAB PO SCH (08:43)
[2020-05-01] MEDS: carvediloL 12.5 MG TAB PO SCH ×2 (08:43→20:36)
[2020-05-01] MEDS: FAMOTIDINE 20 MG TAB PO SCH ×2 (08:43→20:36)
[2020-05-01] MEDS: MEMANTINE HCL 10 MG TAB PO SCH ×2 (08:44→20:35)
[2020-05-01] MEDS: BuPROPion XL 150 MG TABCR PO SCH ×2 (08:44→20:37)
[2020-05-01] MEDS: ESCITALOPRAM OXALATE 10 MG TAB PO SCH (08:44)
[2020-05-01] MEDS: DULOXETINE HCL 20 MG CAP PO SCH (08:44)
[2020-05-01] MEDS: metroNIDAZOLE 500 MG TAB PO SCH ×3 (08:44→20:35)
[2020-05-01] MEDS: INSULIN GLARGINE SOLOSTAR 100 UNITS/ML 3 ML PEN SQ SCH ×2 (08:48→20:38)
[2020-05-01] MEDS: INSULIN ASPART 100 UNITS/ML 3 ML PEN SC SCH ×4 (08:48→20:37)
[2020-05-01] MEDS ORDERED: LACTULOSE SYRUP 20 GM/30 ML UDC PO ONE (08:49)
[2020-05-01] MEDS: IRON SUCROSE 200 MG in 0.9 % SODIUM CHLORIDE 100 ML IV SCH (10:07)
[2020-05-01] MEDS: ONDANSETRON INJ 2 MG/ML 2 ML VIAL IV PRN (16:22)
[2020-05-01] MEDS: MONTELUKAST SODIUM 10 MG TABLET PO SCH (20:37)
--- NOTE | 2020-05-01 21:51 | Hospitalist Progress Note ---
Date of Service May 01, 2020 Assessment & Plan (1) Encephalopathy acute: METABOLIC ENCEPHALOPATHY -- combination of decompensated hypothyroidism, mildly elevated ammonia levels, and mild respiratory acidosis. MARKED IMPROVEMENT OVERNIGHT IN TREATING ALL 3 ISSUES. Thyroid medication has been adjusted. Lactulose given for ammonia. BIPAP for respiratory acidosis/untreated ROBIN. Cont higher dose of synthroid. Cont daily lactulose; check ammonia level am. Cont BIPAP for naps and HS use; should d/c to SNF on BIPAP. Needs repeat sleep study as outpatient. (2) Acute respiratory acidosis: IMPROVED. Hypercarbia due to multiple metabolic derangements in the setting of probable obesity-hypoventilation syndrome and known, previously dx ROBIN. Cont BIPAP 10/05. Needs repeat sleep study as outpatient. Would d/c to SNF WITH BIPAP if possible. (3) Hepatic encephalopathy: Improved clinically. Cont daily lactulose 20gm. Recheck ammonia level am. (4) Chronic respiratory failure with hypoxia: On continuous NC O2 at halfway. Suspect due to obesity-hypoventilation syndrome. (5) Anemia: Hemoglobin on 04/23 was 7.1 (day of admission). s/p 1 unit PRBCs this admission. H/H stable since the PRBCs. Iron studies c/w iron deficiency anemia. B12 level this afternoon wnl. Continues on venofer 200mg IV daily. Stop today; recheck ferritin in am with retic and CBC. no overt GI bleeding while here. Poor candidate for endoscopic evaluation in light of mental status. I cannot rule out anemia due to cirrhosis. (6) Colitis: Colitis of sigmoid colon noted on CT at time of admission. Remains on cipro and flagyl, day # 6 of such. clinically resolved. Diverticulitis?? plan 10-day course then stop antibiotics. (7) Cirrhosis of liver: suspect due to THOMAS. see above re: ammonia levels. (8) Chronic kidney disease (CKD): stage 3 at baseline. Cr again stable today. 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 also with depression/anxiety. cont bupropion, donepezil, Lexapro, gabapentin, and memantine. interestingly she is oriented but states consistently she lives at home and is returning there (lives at [facility]). (10) Anxiety with depression: meds as above. (11) Peripheral neuropathy: Reduced gabapentin to 400 mg p.o. twice daily in case gabapentin was contributing to encephalopathy/fatigue. (12) Hypothyroidism: DECOMPENSATED. Reportedly on levothyroxine 75 mcg daily at SNF. TSH 47.7 at admission. [facility] was contacted and they confirmed that she takes her medications every day as directed. In the past her dose was up to 450mcg/day!? Dose increased to 125mcg daily by previous hospitalist THIS ADMISSION. Repeat TSH in 4-6 weeks. Myxedema coma NOT suspected. (13) Splenomegaly: Noted 2nd cirrhosis this is causing mild thrombocytopenia platelet count today again stable (14) Morbid obesity with BMI of 45.0-49.9, adult: BMI 49.1 (15) DVT prophylaxis: given severe morbid obesity and largely bed-bound status along w/ cirrhosis -- heparin 7500 units TID updated Gerardo, her brother, by phone on 04/30 left message for Gerardo on his voicemail on 05/01 left message for daughter on 04/30 SNF requested PT/OT evals COVID test was negative d/c back to SNF on 05/02?? Admission and Anticipated Discharge Date Admission Date: April 26, 2020 Subjective tele stable overnight. patient wore BIPAP most of night. states it was fairly comfortable. she reports having worn CPAP years ago for a dx of ROBIN. her machine broke and stopped using it after that. just using NC O2 now. when she awoke this am she felt rested and not as tired/fatigued. staff report she has been awake all morning. eating decently. no new complaints. patient still convinced she is returning home (is from [facility]). Review of Systems Constitutional: no fever Respiratory: no cough and no dyspnea Cardiovascular: no chest pain and no orthopnea Gastrointestinal: no abdominal pain, no nausea and no vomiting Physical Exam Constitutional: + morbidly obese; no acute distress and no altered mental status (knows she is in hospital and it is 2019) looks MUCH better today ENMT: external ear and nose normal, oropharynx normal Respiratory: normal respiratory effort, lungs clear to auscultation no respiratory distress Auscultation: + diminished lung sounds (bases) Cardiovascular: Rate/Rhythm: regular rate Heart Sounds: normal S1, normal S2 and + murmur (2/6 LSB systolic ) Vessels: posterior tibial pulses present and dorsalis pedis pulses present; no JVD Extremities: no edema Gastrointestinal (Abdomen): normal bowel sounds, soft, nontender, no hepatosplenomegaly Neurologic: Motor/Sensory: no tremor Psychiatric: A+Ox3, euthymic affect (interestingly she keeps telling me she is going HOME at d/c) Results & Data Results & Data ([facility]) Vital Signs (Past 12 Hours) Vital Signs Temp Pulse Pulse Resp BP BP Pulse Ox 05/01/20 19:00 36.9 C 71 22 131/55 L 90 05/01/20 16:30 74 05/01/20 16:03 36.7 C 68 18 105/55 L 90 05/01/20 12:05 36.8 C 67 20 116/56 L 95 Laboratory Results Laboratory Results - last 24 hr 05/01/20 05/01/20 05/01/20 06:50 06:50 07:44 WBC 6.30 RBC 3.80 L Hgb 8.6 L Hct 30.8 L MCV 81.1 MCH 22.6 L MCHC 27.9 L RDW Std Deviation 49.1 H RDW Coeff of Carlos 17.3 H Plt Count 92 L Platelet Estimate Decreased L Sodium 142 Potassium 3.7 Chloride 111 H Carbon Dioxide 30 Anion Gap 1.0 L BUN 10 Creatinine 1.35 H Est Cr Clr Drug Dosing 47.8 Est GFR ( Amer) 46.6 Est GFR (Non-Af Amer) 40.2 BUN/Creatinine Ratio 7.4 L Glucose 79 POC Glucose 87 Calcium 8.3 L 05/01/20 05/01/20 05/01/20 11:36 17:01 20:12 WBC RBC Hgb Hct MCV MCH MCHC RDW Std Deviation RDW Coeff of Carlos Plt Count Platelet Estimate Sodium Potassium Chloride Carbon Dioxide Anion Gap BUN Creatinine Est Cr Clr Drug Dosing Est GFR ( Amer) Est GFR (Non-Af Amer) BUN/Creatinine Ratio Glucose POC Glucose 106 H 124 H 177 H Calcium PG Care Time/CCT Total # of Minutes Spent Total Time Spent with Patient: Total time spent is greater than 50% in coordination of care (as documented) at patient's floor/unit and/or counseling patient: Coding Level of Care Code 83150 Subseq Hosp Care Lvl 3 Diagnoses Encephalopathy acute G93.40 Acute respiratory acidosis E87.2 Hepatic encephalopathy K72.90 Chronic respiratory failure with hypoxia J96.11 Anemia D64.9 Anemia type: unspecified type Colitis K52.9 Cirrhosis of liver K74.60 Hepatic cirrhosis type: unspecified hepatic cirrhosis Ascites presence: without ascites Chronic kidney disease (CKD) N18.3 Chronic kidney disease stage: stage 3 (moderate) SDAT (senile dementia of Alzheimer's type) G30.1; F02.80 Anxiety with depression F41.8 Peripheral neuropathy G62.9 Peripheral neuropathy type: polyneuropathy, unspecified Hypothyroidism E03.9 Hypothyroidism type: acquired Splenomegaly R16.1 Morbid obesity with BMI of 45.0-49.9, adult E66.01; Z68.42 DVT prophylaxis Z29.9 (1) Anemia Anemia type: unspecified type Qualified Code(s): D64.9 - Anemia, unspecified (2) Cirrhosis of liver Hepatic cirrhosis type: unspecified hepatic cirrhosis Ascites presence: without ascites Qualified Code(s): K74.60 - Unspecified cirrhosis of liver (3) Chronic kidney disease (CKD) Chronic kidney disease stage: stage 3 (moderate) Qualified Code(s): N18.3 - Chronic kidney disease, stage 3 (moderate) (4) Peripheral neuropathy Peripheral neuropathy type: polyneuropathy, unspecified Qualified Code(s): G62.9 - Polyneuropathy, unspecified (5) Hypothyroidism Hypothyroidism type: acquired Qualified Code(s): E03.9 - Hypothyroidism, unspecified
[2020-05-02] MEDS ORDERED: ACETAMINOPHEN 325 MG TAB PO PRN (02:56)
[2020-05-02] MEDS: HEPARIN SODIUM (PORCINE) 7,500 UNITS in SYRINGE 0 ML SQ SCH ×3 (05:28→22:03)
[2020-05-02] MEDS: LEVOTHYROXINE SODIUM 125 MCG TABLET PO SCH (05:28)
[2020-05-02 07:25] LABS: Creatinine Clr Calc Pharmacy 47.6 ml/min; Est GFR (African American) 45.4; Est GFR (Non-African American) 39.2
[2020-05-02 07:28] LABS: Hematocrit (blood only) 30.6 % (37-47); Hemoglobin 8.5 g/dL (12.0-16.0); Mean Corpuscular Hemoglobin 22.8 pg (25-34); Mean Corpuscular Hgb Conc 27.8 g/dL (32-36); Platelet Count 89 K/uL (130-400); Platelet Estimate Decreased (Normal); RDW Coefficient of Variation 18.4 % (11.5-14.5); RDW Standard Deviation 50.1 fL (36.4-46.3); Red Blood Count 3.73 M/uL (4.2-5.4); Reticulocyte % 4.1 % (0.5-2.0); Reticulocytes # 0.15 10^6/uL (0.02-0.10)
[2020-05-02 07:29] LABS: Ferritin 170.6 ng/ml (8-388)
[2020-05-02] MEDS: INSULIN ASPART 100 UNITS/ML 3 ML PEN SC SCH ×4 (08:28→22:03)
[2020-05-02] MEDS: DULOXETINE HCL 20 MG CAP PO SCH (08:31)
[2020-05-02] MEDS: carvediloL 12.5 MG TAB PO SCH ×2 (08:31→22:02)
[2020-05-02] MEDS: CIPROFLOXACIN 500 MG TAB PO SCH ×2 (08:31→22:01)
[2020-05-02] MEDS: INSULIN GLARGINE SOLOSTAR 100 UNITS/ML 3 ML PEN SQ SCH ×2 (08:32→23:26)
[2020-05-02] MEDS: ASPIRIN 81 MG ECTAB PO SCH (08:32)
[2020-05-02] MEDS: metroNIDAZOLE 500 MG TAB PO SCH ×3 (08:32→22:01)
[2020-05-02] MEDS: MEMANTINE HCL 10 MG TAB PO SCH ×2 (08:33→22:01)
[2020-05-02] MEDS: ESCITALOPRAM OXALATE 10 MG TAB PO SCH (08:33)
[2020-05-02] MEDS: GABAPENTIN 400 MG CAP PO SCH ×3 (08:33→22:01)
[2020-05-02] MEDS: FAMOTIDINE 20 MG TAB PO SCH ×2 (08:34→22:02)
[2020-05-02] MEDS: PANTOprazole 40 MG TAB PO SCH (08:34)
[2020-05-02] MEDS: BuPROPion XL 150 MG TABCR PO SCH ×2 (08:34→22:02)
[2020-05-02] MEDS: LACTULOSE SYRUP 20 GM/30 ML UDC PO SCH (09:47)
[2020-05-02] MEDS: DONEPEZIL HCL 10 MG TAB PO SCH (09:47)
--- NOTE | 2020-05-02 13:49 | Discharge Summary ---
Date of Service May 03, 2020 Admission HPI Per Admitting Provider The patient is a 70-year-old female with a past medical history including anemia, hypothyroidism, diabetes mellitus, anxiety with depression, muscle spasm, SDAT, peripheral neuropathy, COPD, chronic pain syndrome and GERD. She was sent to the ED by [facility] reporting that she needed a transfusion. Patient herself is unable to give a significant history, appearing somewhat lethargic and able to give one-word answers. She reportedly has been anemic in the past, and did have a blood transfusion last year without difficulties. Patient reportedly earlier denied chest pain, shortness of breath, fevers, chills. She is unable to tell me if she has had blood in her stool or any change in stool pattern. Her HPI and review of systems as noted are very limited. Principal Diagnosis Pt is stable. She has had no further confusion. No issues with PO intake. States she gets UE/LE swelling at baseline, minimal today. Pt denies fever, SOB, chest pain, abd pain, n/v/c/d, LE pain. Pt states she wears O2 at baseline and feels her breathing is at its usual. Discharge Exam Constitutional WD/WN, vitals as above Eyes normal visual martínez by confrontation and + anicteric sclerae Neck normal visual inspection and trachea midline Respiratory normal respiratory effort, lungs clear to auscultation Cardiovascular Rate/Rhythm: regular rate and regular rhythm Gastrointestinal (Abdomen) Inspection/Auscultation: abdomen not distended Percussion/Palpation: abdomen soft; abdomen nontender Musculoskeletal Head/Neck/Chest: normocephalic and head atraumatic Skin no rashes, warm and dry Neurologic awake; not confused Speech / Cognition: normal speech Psychiatric A+Ox3, euthymic affect Discharge Data Allergies Allergy/AdvReac Type Severity Reaction Status Date / Time hydromorphone Allergy Mild hives Unverified 07/25/12 11:16 indomethacin Allergy Mild NOSE BLEED Unverified 07/25/12 11:16 Iodinated Contrast Media AdvReac Intermediate Difficulty Verified 04/28/20 07:43 Breathing Consultations 04/25/20 23:42 ED Decision to Admit Stat 04/26/20 02:52 Consult Case Management - Discharge Planning Routine Ordered Studies 04/25/20 22:16 CT abd pelvis wo con Urgent Hospital Course (1) Encephalopathy acute: METABOLIC ENCEPHALOPATHY -- combination of decompensated hypothyroidism, mildly elevated ammonia levels, and mild respiratory acidosis. MARKED IMPROVEMENT OVERNIGHT IN TREATING ALL 3 ISSUES. Thyroid medication has been adjusted. Lactulose given for ammonia. BIPAP for respiratory acidosis/untreated ROBIN. Cont higher dose of synthroid. Cont daily lactulose; check ammonia level am. Cont BIPAP for naps and HS use; should d/c to SNF on BIPAP. Needs repeat sleep study as outpatient. SNF states that they are not able to start a new BIPAP on a pt due to COVID, but could provide CPAP SNF with issues providing CPAP until Wednesday, pt can use NC continuous as she had been doing [employer] until CPAP can be provided (2) Acute respiratory acidosis: IMPROVED. Hypercarbia due to multiple metabolic derangements in the setting of probable obesity-hypoventilation syndrome and known, previously dx ROBIN. As above (3) Hepatic encephalopathy: Improved clinically. Cont daily lactulose 20gm. Ammonia improved (4) Chronic respiratory failure with hypoxia: On continuous NC O2 at half-way. Suspect due to obesity-hypoventilation syndrome. (5) Anemia: Hemoglobin on 04/23 was 7.1 (day of admission). s/p 1 unit PRBCs this admission. H/H stable since the PRBCs. Iron studies c/w iron deficiency anemia. B12 level WNL Venofer 200mg IV daily during admission no overt GI bleeding while here. Poor candidate for endoscopic evaluation Cannot rule out anemia due to cirrhosis. (6) Colitis: Colitis of sigmoid colon noted on CT at time of admission. Cipro and flagyl clinically resolved. Should continue 3 more days of cipro, flagyl (7) Cirrhosis of liver: suspect due to THOMAS. see above re: ammonia levels. (8) Chronic kidney disease (CKD): stage 3 at baseline. Cr again stable today. 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 also with depression/anxiety. cont bupropion, donepezil, Lexapro, gabapentin, and memantine. interestingly she is oriented but states consistently she lives at home and is returning there (lives at [facility]). (10) Anxiety with depression: meds as above. (11) Peripheral neuropathy: Reduced gabapentin to 400 mg p.o. twice daily in case gabapentin was contributing to encephalopathy/fatigue. (12) Hypothyroidism: DECOMPENSATED. Reportedly on levothyroxine 75 mcg daily at [facility]. TSH 47.7 at admission. [facility] was contacted and they confirmed that she takes her medications every day as directed. In the past her dose was up to 450mcg/day!? Dose increased to 125mcg daily by previous hospitalist THIS ADMISSION. Repeat TSH in 4-6 weeks. Myxedema coma NOT suspected. (13) Splenomegaly: Noted 2nd cirrhosis this is causing mild thrombocytopenia platelet count today again stable (14) Morbid obesity with BMI of 45.0-49.9, adult: BMI 49.1 (15) DVT prophylaxis: given severe morbid obesity and largely bed-bound status along w/ cirrhosis -- heparin 7500 units TID during admission SNF requested PT/OT zuleyma COVID test was negative Total Time Total Time Spent Total Time Spent (In Minutes): >30 Total Time Includes: Examination of the Patient, Discharge Planning, Medication Reconciliation and Other Discharge Plan Discharge Items Patient Disposition: Transfer Care Home Fac Reason For Visit: SIGMOID COLITIS, ANEMIA Discharge Diagnosis: metabolic encephalopathy, sigmoid colitis, anemia Condition on Discharge: Fair Activity: Resume your previous activity Non-emergency contact: Primary Care Provider Call non-emergency contact if: you have any medication questions and your symptoms worsen Follow-up/Referrals: Nathaly Salgado [Primary Care Provider] - Diet: Regular Addtl Attending Provider Instructions: Pt needs to have an outpatient sleep study done for probable ROBIN. She can use a CPAP until this testing is complete. Facility with issues obtaining a CPAP until Wednesday, can use O2 via NC until CPAP available on Wednesday Pending Studies at Discharge: No Stand-Alone Forms: My [facility] Skilled Items Patient informed of condition?: Yes DNR: No Discharge Level of Care: Skilled Communicable Disease: No Discharge Prognosis: Improving Lines: None Urinary Catheter: No Medications and DC Order Prescriptions: New acetaminophen 325 mg Tablet 650 mg PO Q8H PRN (Reason: fever or pain) Qty: 30 RF: 0 gabapentin 400 mg Capsule 400 mg PO TID Qty: 30 RF: 0 metronidazole 500 mg Tablet 500 mg PO TID Qty: 15 RF: 0 ciprofloxacin HCl 500 mg Tablet 500 mg PO BID Qty: 10 RF: 0 famotidine 20 mg Tablet 20 mg PO BID Qty: 60 RF: 0 lactulose 20 gram/30 mL Solution 20 gm PO DAILY Qty: 1500 RF: 0 levothyroxine [Synthroid] 125 mcg Tablet 125 mcg PO DAILYBB Qty: 30 RF: 0 Lantus Solostar U-100 Insulin 100 unit/mL (3 mL) Insulin Pen 20 unit subcut BID Qty: 15 RF: 0 Continued carvedilol [Coreg] 12.5 mg Tablet 12.5 mg PO BID RF: 0 alogliptin 25 mg Tablet 25 mg PO DAILY RF: 0 aspirin 81 mg Tablet,Delayed Release (Dr/Ec) 81 mg PO DAILY RF: 0 sucralfate 1 gram Tablet 1 g PO HS RF: 0 cranberry 400 mg Capsule 400 mg PO DAILY RF: 0 donepezil 10 mg Tablet 10 mg PO DAILY RF: 0 duloxetine 20 mg Capsule,Delayed Release(Dr/Ec) 20 mg PO DAILY RF: 0 escitalopram oxalate 10 mg Tablet 10 mg PO DAILY RF: 0 lisinopril 5 mg Tablet 5 mg PO DAILY RF: 0 montelukast [Singulair] 10 mg Tablet 10 mg PO HS RF: 0 pantoprazole 40 mg Tablet,Delayed Release (Dr/Ec) 40 mg PO DAILY RF: 0 bupropion HCl 150 mg Tablet Extended Release 24 Hr 150 mg PO BID RF: 0 ferrous sulfate 324 mg (65 mg iron) Tablet,Delayed Release (Dr/Ec) 324 mg PO BID RF: 0 memantine 10 mg Tablet 10 mg PO BID RF: 0 guaifenesin [Mucinex] 600 mg Tablet Extended Release 12hr 600 mg PO BID RF: 0 spironolactone 25 mg Tablet 12.5 mg PO BID RF: 0 cholecalciferol (vitamin D3) 50 mcg (2,000 unit) Tablet 50 mcg PO TID RF: 0 acetaminophen [Tylenol] 325 mg Tablet 650 mg PO Q6H PRN (Reason: Mild Pain (Scale Score 1-4)) RF: 0 docusate sodium [Colace] 100 mg Capsule 100 mg PO BID RF: 0 cyclobenzaprine 10 mg Tablet 10 mg PO Q8H PRN (Reason: Spasms) RF: 0 bisacodyl [Dulcolax (bisacodyl)] 10 mg Suppository 10 mg OK DIRECTED PRN (Reason: Constipation) RF: 0 Fleet Enema 19-7 gram/118 mL Enema 118 ml OK DIRECTED PRN (Reason: Constipation) RF: 0 magnesium hydroxide [Milk of Magnesia] 400 mg/5 mL Suspension 30 ml PO DIRECTED PRN (Reason: Constipation) RF: 0 nystatin 100,000 unit/gram Powder 1 applic TOPICAL Q8H PRN (Reason: excoriation) RF: 0 acetaminophen [Tylenol] 325 mg Tablet 650 mg PO Q6H PRN (Reason: Fever) RF: 0 levalbuterol HCl [Xopenex] 0.63 mg/3 mL Solution For Nebulization 0.63 mg INHALATION Q6H PRN (Reason: sob/wheezing) RF: 0 Discontinued Lantus Solostar U-100 Insulin 100 unit/mL (3 mL) Insulin Pen 20 unit SUBCUT QAM RF: 0 Lantus Solostar U-100 Insulin 100 unit/mL (3 mL) Insulin Pen 30 unit SUBCUT HS RF: 0 levothyroxine 75 mcg Tablet 75 mcg PO DAILY RF: 0 gabapentin 600 mg Tablet 600 mg PO TID RF: 0 lactulose 10 gram/15 mL (15 mL) Solution 15 ml PO Q6H PRN (Reason: Constipation) RF: 0 oxycodone-acetaminophen [Percocet] 5-325 mg Tablet 1 tab PO Q4H PRN (Reason: pain 4-6) RF: 0 oxycodone-acetaminophen [Percocet] 5-325 mg Tablet 1 tab PO Q4H PRN (Reason: pain 7-10) RF: 0 Discharge Orders: Discharge Order (Routine); Ordered 05/02/20 Ordered By: Micki Freire Admission Data Admit Date/Time: 04/26/20 01:05 Attending Provider: Micki Freire Admit Provider: Adryan Corbett Primary Care Provider: Nathaly Salgado Other Providers: Adryan Corbett Other Interventions: Discharge Summary Assessment (RN) Last Done: 05/03/20 15:12 Coding Level of Care Code D/C Day Management >30 mins Diagnoses Encephalopathy acute G93.40 Acute respiratory acidosis E87.2 Hepatic encephalopathy K72.90 Chronic respiratory failure with hypoxia J96.11 Anemia D64.9 Anemia type: unspecified type Colitis K52.9 Cirrhosis of liver K74.60 Ascites presence: without ascites Hepatic cirrhosis type: unspecified hepatic cirrhosis Chronic kidney disease (CKD) N18.3 Chronic kidney disease stage: stage 3 (moderate) SDAT (senile dementia of Alzheimer's type) G30.1; F02.80 Anxiety with depression F41.8 Peripheral neuropathy G62.9 Peripheral neuropathy type: polyneuropathy, unspecified Hypothyroidism E03.9 Hypothyroidism type: acquired Splenomegaly R16.1 Morbid obesity with BMI of 45.0-49.9, adult E66.01; Z68.42 DVT prophylaxis Z29.9
--- NOTE | 2020-05-02 17:12 | Hospitalist Progress Note ---
Date of Service May 02, 2020 Assessment & Plan (1) Encephalopathy acute: METABOLIC ENCEPHALOPATHY -- combination of decompensated hypothyroidism, mildly elevated ammonia levels, and mild respiratory acidosis. MARKED IMPROVEMENT OVERNIGHT IN TREATING ALL 3 ISSUES. Thyroid medication has been adjusted. Lactulose given for ammonia. BIPAP for respiratory acidosis/untreated ROBIN. Cont higher dose of synthroid. Cont daily lactulose; check ammonia level am. Cont BIPAP for naps and HS use; should d/c to SNF on BIPAP. Needs repeat sleep study as outpatient. (2) Acute respiratory acidosis: IMPROVED. Hypercarbia due to multiple metabolic derangements in the setting of probable obesity-hypoventilation syndrome and known, previously dx ROBIN. Cont BIPAP 10/05. Needs repeat sleep study as outpatient. Would d/c to SNF WITH BIPAP if possible., however due to COVID, facility says they cannot start a pt on BIPAP if this is new to them. She can be set up with a CPAP (3) Hepatic encephalopathy: Improved clinically. Cont daily lactulose 20gm. Recheck ammonia level with slight improvement (4) Chronic respiratory failure with hypoxia: On continuous NC O2 at assisted. Suspect due to obesity-hypoventilation syndrome. (5) Anemia: Hemoglobin on 04/23 was 7.1 (day of admission). s/p 1 unit PRBCs this admission. H/H stable since the PRBCs. Iron studies c/w iron deficiency anemia. B12 level WNL Continues on venofer 200mg IV daily. Stop today; recheck ferritin in am with retic and CBC. no overt GI bleeding while here. Poor candidate for endoscopic evaluation in light of mental status. I cannot rule out anemia due to cirrhosis. (6) Colitis: Colitis of sigmoid colon noted on CT at time of admission. Remains on cipro and flagyl, day # 6 of such. clinically resolved. Diverticulitis?? plan 10-day course then stop antibiotics. (7) Cirrhosis of liver: suspect due to THOMAS. see above re: ammonia levels. (8) Chronic kidney disease (CKD): stage 3 at baseline. Cr again stable today. 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 also with depression/anxiety. cont bupropion, donepezil, Lexapro, gabapentin, and memantine. interestingly she is oriented but states consistently she lives at home and is returning there (lives at [facility]). (10) Anxiety with depression: meds as above. (11) Peripheral neuropathy: Reduced gabapentin to 400 mg p.o. twice daily in case gabapentin was contributing to encephalopathy/fatigue. (12) Hypothyroidism: DECOMPENSATED. Reportedly on levothyroxine 75 mcg daily at SNF. TSH 47.7 at admission. [facility] was contacted and they confirmed that she takes her medications every day as directed. In the past her dose was up to 450mcg/day!? Dose increased to 125mcg daily by previous hospitalist THIS ADMISSION. Repeat TSH in 4-6 weeks. Myxedema coma NOT suspected. (13) Splenomegaly: Noted 2nd cirrhosis this is causing mild thrombocytopenia platelet count today again stable (14) Morbid obesity with BMI of 45.0-49.9, adult: BMI 49.1 (15) DVT prophylaxis: given severe morbid obesity and largely bed-bound status along w/ cirrhosis -- heparin 7500 units TID SNF requested PT/OT ronnyals COVID test was negative Plan was for d/c back to SNF today, where pt is a bed hold, however facility states that they need an auth for her prior to return. It is unclear why this is the case as she is a bed hold, however they are refusing her return until they have an auth. Await auth for d/c. Admission and Anticipated Discharge Date Admission Date: April 26, 2020 Subjective Pt feels she is doing much better. No further confusion. She had a bit of nausea with lunch, but was still able to eat. No emesis. States she gets UE/LE swelling at baseline, but doing well from that standpoint today. Pt denies fever, SOB, chest pain, abd pain, n/v/c/d, LE pain. Pt states she wears O2 at baseline and feels her breathing is at its usual. Review of Systems Review of Systems: Pertinent positives and negatives reviewed in HPI--all others negative Physical Exam Constitutional: WD/WN, vitals as above Eyes: normal visual martínez by confrontation and + anicteric sclerae Neck: normal visual inspection and trachea midline Respiratory: normal respiratory effort, lungs clear to auscultation Cardiovascular: Rate/Rhythm: regular rate and regular rhythm Gastrointestinal (Abdomen): Inspection/Auscultation: abdomen not distended Percussion/Palpation: abdomen soft; abdomen nontender Musculoskeletal: Head/Neck/Chest: normocephalic and head atraumatic Trace LE edema, peripheral pulses intact Skin: no rashes, warm and dry Neurologic: awake; not confused Speech / Cognition: normal speech Psychiatric: A+Ox3, euthymic affect Results & Data Results & Data ([facility]) Vital Signs (Past 12 Hours) Vital Signs Temp Pulse Pulse Resp BP BP Pulse Ox 05/02/20 16:00 36.6 C 66 18 122/50 L 99 05/02/20 14:09 36.6 C 66 18 101/62 152/64 H 100 05/02/20 11:32 36.6 C 66 18 152/64 H 100 05/02/20 08:30 59 L 05/02/20 08:01 36.4 C L 56 L 20 128/77 100 PG Care Time/CCT Total # of Minutes Spent Total Time Spent with Patient: Total time spent is greater than 50% in coordination of care (as documented) at patient's floor/unit and/or counseling patient: Coding Level of Care Code 84193 Subseq Hosp Care Lvl 3 Diagnoses Encephalopathy acute G93.40 Acute respiratory acidosis E87.2 Hepatic encephalopathy K72.90 Chronic respiratory failure with hypoxia J96.11 Anemia D64.9 Anemia type: unspecified type Colitis K52.9 Cirrhosis of liver K74.60 Hepatic cirrhosis type: unspecified hepatic cirrhosis Ascites presence: without ascites Chronic kidney disease (CKD) N18.3 Chronic kidney disease stage: stage 3 (moderate) SDAT (senile dementia of Alzheimer's type) G30.1; F02.80 Anxiety with depression F41.8 Peripheral neuropathy G62.9 Peripheral neuropathy type: polyneuropathy, unspecified Hypothyroidism E03.9 Hypothyroidism type: acquired Splenomegaly R16.1 Morbid obesity with BMI of 45.0-49.9, adult E66.01; Z68.42 DVT prophylaxis Z29.9 (1) Anemia Anemia type: unspecified type Qualified Code(s): D64.9 - Anemia, unspecified (2) Cirrhosis of liver Hepatic cirrhosis type: unspecified hepatic cirrhosis Ascites presence: without ascites Qualified Code(s): K74.60 - Unspecified cirrhosis of liver (3) Chronic kidney disease (CKD) Chronic kidney disease stage: stage 3 (moderate) Qualified Code(s): N18.3 - Chronic kidney disease, stage 3 (moderate) (4) Peripheral neuropathy Peripheral neuropathy type: polyneuropathy, unspecified Qualified Code(s): G62.9 - Polyneuropathy, unspecified (5) Hypothyroidism Hypothyroidism type: acquired Qualified Code(s): E03.9 - Hypothyroidism, unspecified
[2020-05-02] MEDS: MONTELUKAST SODIUM 10 MG TABLET PO SCH (22:01)
[2020-05-03] MEDS: LEVOTHYROXINE SODIUM 125 MCG TABLET PO SCH (05:52)
[2020-05-03] MEDS: HEPARIN SODIUM (PORCINE) 7,500 UNITS in SYRINGE 0 ML SQ SCH ×2 (05:53→14:07)
[2020-05-03] MEDS: DULOXETINE HCL 20 MG CAP PO SCH (09:22)
[2020-05-03] MEDS: ESCITALOPRAM OXALATE 10 MG TAB PO SCH (09:22)
[2020-05-03] MEDS: DONEPEZIL HCL 10 MG TAB PO SCH (09:22)
[2020-05-03] MEDS: carvediloL 12.5 MG TAB PO SCH (09:23)
[2020-05-03] MEDS: ASPIRIN 81 MG ECTAB PO SCH (09:23)
[2020-05-03] MEDS: LACTULOSE SYRUP 20 GM/30 ML UDC PO SCH (09:23)
[2020-05-03] MEDS: BuPROPion XL 150 MG TABCR PO SCH (09:24)
[2020-05-03] MEDS: FAMOTIDINE 20 MG TAB PO SCH (09:24)
[2020-05-03] MEDS: CIPROFLOXACIN 500 MG TAB PO SCH (09:24)
[2020-05-03] MEDS: MEMANTINE HCL 10 MG TAB PO SCH (09:25)
[2020-05-03] MEDS: GABAPENTIN 400 MG CAP PO SCH ×2 (09:25→14:07)
[2020-05-03] MEDS: metroNIDAZOLE 500 MG TAB PO SCH ×2 (09:25→15:11)
[2020-05-03] MEDS: PANTOprazole 40 MG TAB PO SCH (09:26)
[2020-05-03] MEDS: INSULIN ASPART 100 UNITS/ML 3 ML PEN SC SCH ×2 (09:26→13:11)
[2020-05-03] MEDS: INSULIN GLARGINE SOLOSTAR 100 UNITS/ML 3 ML PEN SQ SCH (09:33)
== END 2020-05-03 16:14 | DRG 391 ==
LOC: ED 21:58 → 2N 04-26 01:05 → SUATTDRO 04-26 01:05 → 2N 04-26 02:15